=== PATIENT | female | born 1955 | race Caucasian/White ===

== ENCOUNTER 2017-04-07 09:56 | Emergency (ER) | payer MEDICARE ==
[2017-04-07 11:14] LABS: ABS Basophils 0.1 10^3/ul (0-0.2); ABS Eosinophils 0.3 10^3/ul (0-0.6); ABS Lymphocytes 1.3 10^3/ul (1.0-4.8); ABS Monocytes 0.5 10^3/ul (0-0.8); ABS Neutrophils 5.5 10^3/ul (1.5-7.7); ABS Nucleated RBC 0 10^3/ul; Eosinophil % 3.5 % (0-6); Hematocrit 43 % (35-47); Hemoglobin 14.7 g/dl (12.0-16.0); Lymphocyte % 16.8 % (25-47); Mean Corpuscular HGB Conc 34 g/dl (31-36); Mean Corpuscular Hemoglobin 30 pg (27-31); Mean Corpuscular Volume 88 fL (80-97); Mean Platelet Volume 7 um3 (7.4-10.4); Nucleated Red Blood Cells % 0; Platelet Count 410 10^3/ul (150-450); Red Blood Count 4.87 10^6/ul (4.0-5.4); Red Cell Distribution Width 14 % (10.5-15); White Blood Count 7.6 10^3/ul (3.5-10.8)
[2017-04-07 11:29] LABS: EGFR Non-African American 63.2 (>60)
--- NOTE | 2017-04-07 11:59 | RAD ---
INDICATION: Chest pain. COMPARISON: Comparison is made with a prior chest x-ray study from November 23, 2015. TECHNIQUE: Dual-energy PA and lateral views of the chest were obtained. FINDINGS: The heart is within normal limits in size. There is a transvenous cardiac pacemaker present. The lungs are underinflated and clear. No pleural effusion is seen. No pneumothorax is present. Multiple surgical clips project in the right and left upper quadrants. IMPRESSION: NO EVIDENCE FOR ACTIVE CARDIOPULMONARY DISEASE.
[2017-04-07] MEDS ORDERED: Iohexol 350* (CONTRAST) 500 ML MDV IV ONE (13:02)
--- NOTE | 2017-04-07 13:35 | RAD ---
HISTORY: Shortness of breath COMPARISONS: July 22, 2014 TECHNIQUE: Multiple contiguous axial CT scans of the chest were obtained after the administration of nonionic intravenous contrast, timed to the pulmonary arterial phase of contrast enhancement.. Coronal and sagittal multiplanar reformations are also submitted for review. FINDINGS: NECK AND THYROID: The lower neck and thyroid are unremarkable. CHEST WALL: There is no lower cervical, axillary, or supraclavicular lymphadenopathy by size criteria. A left-sided ICD is noted. HEART AND PERICARDIUM: The heart is unremarkable. AORTA AND PULMONARY VASCULATURE: There is no pulmonary arterial filling defect to suggest pulmonary embolism. There is no linear filling defect within the aorta to suggest aortic dissection. MEDIASTINUM: There is no mediastinal lymphadenopathy by size criteria. NASREEN: There is no hilar lymphadenopathy by size criteria. AIRWAY AND ESOPHAGUS: The airway is unremarkable, without endobronchial filling defect. The esophagus is grossly normal. LUNG PARENCHYMA: The lungs are clear. PLEURA: No pleural abnormalities are noted. UPPER ABDOMEN: There is postsurgical change to the upper abdomen. BONES AND SOFT TISSUES: No bone or soft tissue abnormalities are noted. OTHER: None. IMPRESSION: NO PULMONARY ARTERIAL FILLING DEFECT TO SUGGEST PULMONARY EMBOLISM.
[2017-04-07 15:38] VITALS: BP 99/62
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
== END 2017-04-07 15:37 | disposition home or self-care (01) ==
LOC: ED 09:56
DX: R07.9 Chest pain, unspecified (principal); J40 Bronchitis, not specified as acute or chronic; I25.10 Atherosclerotic heart disease of native coronary artery without angina pectoris; Z87.09 Personal history of other diseases of the respiratory system; Z88.0 Allergy status to penicillin; Z88.8 Allergy status to other drugs, medicaments and biological substances
CPT/HCPCS: 36415; 71046; 71275; 80053; 83605; 84484; 85025; 85379; 93005; 99283; Q9967

== ENCOUNTER 2018-06-22 07:18 | Day surgery (SDC) | payer MEDICARE ==
[~2018-06-22 07:18] MED LIST: Buffered Lidocaine 1% SYRIN* 1 ML/SYRINGE INTRADERM ONE; Dexamethasone IV* 4 MG/ML 1 ML (4 MG) IV SLOW PU ONE; Famotidine IV* 10 MG/ML 2 ML (20 mg) IV ONE; Lactated Ringers 1000 ML Bag* 1,000 ML IV SCH
[2018-06-22] MEDS ORDERED: Dexamethasone IV* 4 MG/ML 1 ML (4 MG) ONE (08:04)
[2018-06-22] MEDS ORDERED: Buffered Lidocaine 1% SYRIN* 1 ML/SYRINGE INTRADERM ONE (08:05)
[2018-06-22] MEDS ORDERED: Famotidine IV* 10 MG/ML 2 ML (20 mg) ONE (08:05)
[2018-06-22] MEDS ORDERED: Bupivacaine 0.25% SDV PF* 10 ML VIAL INJ ONE ×2 (08:49→09:06)
[2018-06-22] MEDS ORDERED: Midazolam* 1 MG/ML 2 ML VIAL (2 MG) ONE (08:56)
[2018-06-22] MEDS ORDERED: fentaNYL* 50 MCG/ML 2 ML VIAL (100 MCG VIAL) ONE (08:56)
[2018-06-22] MEDS ORDERED: Propofol* 10 MG/ML 20 ML BTL ONE (09:03)
[2018-06-22] MEDS ORDERED: Lidocaine 2% PF * 5 ML VIAL ONE (09:03)
[2018-06-22 10:01] VITALS: BP 107/75
--- NOTE | 2018-06-22 10:40 | OP ---
DATE OF OPERATION: 06/22/18 - SDS DATE OF : 53 SURGEON: Luis Rush MD. PLASTER HELPER: KIM Thurston. ANESTHESIOLOGIST: Dr. Rosales. ANESTHESIA: Local MAC. PRE-OP DIAGNOSIS: Severe right trigger thumb. POST-OP DIAGNOSIS: Severe right trigger thumb. OPERATIVE PROCEDURE: Right trigger thumb release of A1 tamela. INDICATIONS: Stacie is 63. She has the right trigger thumb that is locked in extension. We had talked about risks and benefits. She had wanted a trigger thumb release. ESTIMATED BLOOD LOSS: 2 mL. COMPLICATIONS: None. FINDINGS: See above and below. DESCRIPTION OF PROCEDURE: Stacie was seen in the preoperative holding area. The correct side, site, and procedure were identified. She was taken back to the operating room where I injected her with 0.25% Marcaine. The arm was then prepped and draped in the usual fashion and time-out was performed. The arm was exsanguinated with the Esmarch and the tourniquet was inflated to 250 mmHg. I made a transverse incision in the MP joint flexion crease. Dissection was carried down bluntly with the tenotomy scissors. The digital nerves were retracted and protected. I then released a very thickened nodular A1 tamela. This was completed distally and proximally with the tenotomy scissors. I then checked to make sure there was no catching of the thumb. I excised just the most nodular portion of that tamela. Once all that was done, I irrigated out the wound. Skin was closed with 4-0 nylon suture. Soft dressings were applied, and she was taken to the recovery room in stable condition. [id number]/[facility] #: [id number] MTDD
== END 2018-06-22 10:37 | disposition home or self-care (01) ==
LOC: OR 07:18
PROVIDERS: ATTEND Orthopaedic Surgery Hand Surgery
DX: M65.311 Trigger thumb, right thumb (principal); I25.10 Atherosclerotic heart disease of native coronary artery without angina pectoris; I25.2 Old myocardial infarction; Z95.5 Presence of coronary angioplasty implant and graft; I36.1 Nonrheumatic tricuspid (valve) insufficiency; Z88.0 Allergy status to penicillin; Z88.8 Allergy status to other drugs, medicaments and biological substances
CPT/HCPCS: J1100; J2250; J2704; J3010; J3490

== ENCOUNTER 2019-01-27 18:11 | Observation (INO) | payer MEDICARE ==
[2019-01-27 18:37] LABS: ABS Basophils 0.1 10^3/ul (0-0.2); ABS Eosinophils 0.4 10^3/ul (0-0.6); ABS Lymphocytes 1.6 10^3/ul (1.0-4.8); ABS Monocytes 0.7 10^3/ul (0-0.8); Eosinophil % 5.2 %; Hematocrit 39 % (35-47); Lymphocyte % 20.5 %; Mean Corpuscular HGB Conc 34 g/dL (31-36); Mean Corpuscular Hemoglobin 31 pg (27-31); Mean Corpuscular Volume 90 fL (80-97); Mean Platelet Volume 7.1 fL (7.4-10.4); Platelet Count 275 10^3/uL (150-450); Red Blood Count 4.26 10^6 /uL (3.70-4.87); Red Cell Distribution Width 14 % (10-15); White Blood Count 7.8 10^3/uL (3.5-10.8)
--- OUTSIDE RECORDS SUMMARY | 2019-01-27 18:40 | XMS REPORT | Continuity of Care Document ---
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, primary osteoarthritis of the pelvic Kelsey Ade Walker Onset: 05/2018 region and thigh Social History Type Date Description Comments Sex Unknown Tobacco Use Start: Unknown Never Smoked Cigarettes Smoking Status Reviewed: 12/24/18 Never Smoked Cigarettes ETOH Use Denies alcohol use Tobacco Use Start: Unknown Patient has never smoked Recreational Drug Use Denies Drug Use Exercise Type/Frequency Walks daily Allergies, Adverse Reactions, Alerts Active Allergies Reaction Severity Comments Date Penicillins 06/16/2012 Demerol 06/16/2012 Lisinopril Cough 01/24/2015 Medications Active Medications SIG Qnty Indications Ordering Provider Date Digox 12 tab by 45tabs Qutaybeh S. 04/14/2017 250mcg Tablets mouth every day Ade Call Crestor 1 by mouth 90tabs Qutaybeh S. 01/06/2017 40mg Tablets every day Ade Call Metoprolol Succinate 1/2 by mouth 45tabs Qutaybeh S. 06/21/2015 ER every day Ade Call 25mg Tablets ER 24HR Aspir-81 1 a day 90tabs Tom Myers, 07/25/2014 81mg Tablets Ade Reyna 1 tab by mouth 180tabs Cris S. 90mg Tablets twice a day Ade Call Co Q-10 1 by mouth Unknown 200mg Capsules every day Vitamin D 1 by mouth Unknown 2000Unit every day Capsules Medications Administered in Office Medication SIG Qnty Indications Ordering Provider Date Celestone 3 mg and 3mg Luis Rush MD 12/01/2018 Injection Depomedrol 40MG Kelsey Walker M.D. 08/31/2018 Injection Technetium TC 99M Asaf Diallo DO [facility] 06/19/2017 Tetrofosmin, Per Unit Dose Up To 40 Millicuries Injection Celestone 3 mg and 3mg Daxa Obando, 07/27/2012 Injection Ade Celestone 3 mg and 3mg Daxa Obando, 07/27/2012 Injection Ade Celestone 3 mg and 3mg Luis Rose M.D. 11/27/2011 Injection Immunizations CPT Code Status Date Vaccine Lot # [id number] Given 01/05/2015 Pneumonia Vaccine 08154 Given 01/05/2015 Influenza Virus Vaccine, Split, Preserv Free, Intradermal Use Vital Signs Date Vital Result Comment 12/24/2018 2:14pm Height 64.75 inches 5'4.75" Weight 168.00 lb Heart Rate 78 /min BP Systolic Sitting 119 mmHg BP Diastolic Sitting 83 mmHg O2 % BldC Oximetry 99 % room air BMI (Body Mass Index) 28.2 kg/m2 12/01/2018 8:04am Height 64.75 inches 5'4.75" Weight 165.00 lb Heart Rate 73 /min BP Systolic 118 mmHg BP Diastolic 78 mmHg Respiratory Rate 16 /min Body Temperature 98.0 F Pain Level 2 BMI (Body Mass Index) 27.7 kg/m2 Results Test Date Facility Test Result H/L Range Note Laboratory test 12/23/2018 [facility] Point of Care 100 mg/dL Normal 70-100 [address] [place] [address] [phone] Creatinine 24HR 12/21/2018 [facility] Urine Collection 24 hr Urine [address] [place] [address] [phone] Urine Total Volume 3800 mL Urine Creatinine Concentration 25.85 mg/dL Urine Creatinine/24 Hour 982.30 mg/24Hr 600-1800 Total Protein 12/21/2018 [facility] Urine TP Concentration 6 mg/ dL 24HR Urine [address] [place] [address] [phone] Urine Total Protein/24HR 228 mg/24Hr High 0-165 Microalbumin 24HR 12/21/2018 [facility] Ur Microalbumin < 15.[address] (mg/L) mg/[place] [address] [phone] Urine Microalbumin (mg/24Hr) TNP mg/24hr Less than 30 2 Urine Microalbumin (mcg/min) TNP mcg/min Less than 20 3 Urinalysis Profile 12/21/2018 [facility] Urine Color Yellow [address] [place] [address] [phone] Urine Appearance Cloudy Urine Specific [place] 1.019 Normal 1.010-1.030 Urine pH 5.0 Normal 5-9 Urine Urobilinogen Negative Negative Urine Ketones Negative Negative Urine Protein 1+(30 mg/dL) Abnormal Negative Urine Leukocytes Negative Negative Urine Blood Negative Negative Urine Nitrite Negative Negative Urine Bilirubin Negative Negative Urine Glucose Negative Negative Urine White Blood Cell Absent Absent Urine Red Blood Cell Absent Absent Urine Bacteria Absent Absent Urine Squamous Epithelial Cell Present Abnormal Absent Comp Metabolic 12/21/2018 [facility] Sodium 142 mmol/L Normal 135-[address] [place] [address] [phone] Potassium 4.1 mmol/L Normal 3.5-5.0 Chloride 104 mmol/L Normal 101-111 Co2 Carbon Dioxide 32 mmol/L Normal 22-32 Anion Gap 6 mmol/L Normal 2-11 Calcium 9.6 mg/dL Normal 8.6-10.3 Albumin 3.9 g/dL Normal 3.2-5.2 Total Bilirubin 0.40 mg/dL Normal 0.2-1.0 Glucose 97 mg/dL Normal 70-100 Blood Urea Nitrogen 13 mg/dL Normal 6-24 Creatinine 0.92 mg/dL Normal 0.51-0.95 BUN/Creatinine Ratio 14.1 Normal 8-20 Total Protein 6.8 g/dL Normal 6.4-8.9 Globulin 2.9 g/dL Normal 2-4 Albumin/Globulin Ratio 1.3 Normal 1-3 Alkaline Phosphatase 89 U/L Normal 34-104 Alt 17 U/L Normal 7-52 Ast 16 U/L Normal 13-39 Egfr Non- 61.5 >60 Egfr 74.4 >60 4 CBC Auto 12/21/2018 [facility] White Blood 6.2 10^3/uL Normal 3.5-10.[address] [place] [address] [phone] Red Blood Count 4.84 10^6/uL Normal 3.70-4.87 Hemoglobin 15.0 g/dL Normal 12.0-16.0 Hematocrit 44 % Normal 35-47 Mean Corpuscular Volume 91 fL Normal 80-97 Mean Corpuscular Hemoglobin 31 pg Normal 27-31 Mean Corpuscular HGB Conc 34 g/dL Normal 31-36 Red Cell Distribution Width 14 % Normal 10-15 Platelet Count 353 10^3/uL Normal 150-450 Mean Platelet Volume 7.3 fL Low 7.4-10.4 Abs Neutrophils 3.9 10^3/uL Normal 1.5-7.7 Abs Lymphocytes 1.6 10^3/uL Normal 1.0-4.8 Abs Monocytes 0.4 10^3/uL Normal 0-0.8 Abs Eosinophils 0.3 10^3/uL Normal 0-0.6 Abs Basophils 0.0 10^3/uL Normal 0-0.2 Abs Nucleated RBC 0.0 10^3/uL Granulocyte % 63.2 % Lymphocyte % 25.3 % Monocyte % 6.7 % Eosinophil % 4.1 % Basophil % 0.7 % Nucleated Red Blood Cells % 0.1 Laboratory test 12/04/2018 [facility] Beta 2 2.24 [address] Microglobulin g/[place] [address] [phone] Igg Subclasses 12/04/2018 [facility] Total IgG 1510 mg/dL 767 - [address] [place] [address] [phone] Immunoglobulin G1 954 mg/dL Abnormal 341 - 894 Immunoglobulin G2 325 mg/dL 171 - 632 Immunoglobulin G3 94.3 mg/dL 6 Immunoglobulin G4 273.0 mg/dL Abnormal 7 Microalbumin 24HR 11/12/2018 [facility] Ur Microalbumin 43.6 mg/ L Urine [address] (mg/L) [place], [place] [id number] [phone] Urine Microalbumin (mg/24Hr) 204.9 mg/24hr High Less than 30 Urine Microalbumin (mcg/min) 142.3 mcg/min High Less than 20 Creatinine 24HR 11/12/2018 [facility] Urine Collection 24 hr Urine [address] Time [place], [place] [address] [phone] Urine Total Volume 4700 mL Urine Creatinine Concentration 32.84 mg/dL Urine Creatinine/24 Hour 1543.48 mg/24Hr 600-1800 Total Protein 11/12/2018 [facility] Urine TP 34 mg/dL 24HR Urine [address] [place] [address] [phone] Urine Total Protein/24HR 1598 mg/24Hr High 0-165 Immunoglobulins 11/12/2018 [facility] Immunoglobulin G 1450 767 - 8 Serum Quant [address] mg/dL 1590 [place] [address] [phone] Immunoglobulin M 25 mg/dL Abnormal 37 - 286 Immunoglobulin A 309 mg/dL 61 - 356 Urine Culture And 10/13/2018 [facility] Urine SEE RESULT [address] [place] [address] [phone] CBC Auto Diff 10/13/2018 [facility] White Blood 6.3 10^3/uL Normal 3.5-[address] Count 0.8 [place], [place] [address] [phone] Red Blood Count 4.94 10^6/uL High 3.70-4.87 Hemoglobin 15.4 g/dL Normal 12.0-16.0 Hematocrit 45 % Normal 35-47 Mean Corpuscular Volume 91 fL Normal 80-97 Mean Corpuscular Hemoglobin 31 pg Normal 27-31 Mean Corpuscular HGB Conc 34 g/dL Normal 31-36 Red Cell Distribution Width 15 % Normal 10-15 Platelet Count 331 10^3/uL Normal 150-450 Mean Platelet Volume 7.2 fL Low 7.4-10.4 Abs Neutrophils 4.1 10^3/uL Normal 1.5-7.7 Abs Lymphocytes 1.4 10^3/uL Normal 1.0-4.8 Abs Monocytes 0.5 10^3/uL Normal 0-0.8 Abs Eosinophils 0.3 10^3/uL Normal 0-0.6 Abs Basophils 0.1 10^3/uL Normal 0-0.2 Abs Nucleated RBC 0.0 10^3/uL Granulocyte % 64.5 % Lymphocyte % 21.6 % Monocyte % 8.5 % Eosinophil % 4.5 % Basophil % 0.9 % Nucleated Red Blood Cells % 0.1 Comp Metabolic 10/13/2018 [facility] Sodium 141 mmol/L Normal 135-145 Panel [address] [place] [address] [phone] Potassium 4.1 mmol/L Normal 3.5-5.0 Chloride 104 mmol/L Normal 101-111 Co2 Carbon Dioxide 31 mmol/L Normal 22-32 Anion Gap 6 mmol/L Normal 2-11 Glucose 83 mg/dL Normal 70-100 Blood Urea Nitrogen 12 mg/dL Normal 6-24 Creatinine 0.98 mg/dL High 0.51-0.95 BUN/Creatinine Ratio 12.2 Normal 8-20 Calcium 9.9 mg/dL Normal 8.6-10.3 Total Protein 7.6 g/dL Normal 6.4-8.9 Albumin 4.4 g/dL Normal 3.2-5.2 Globulin 3.2 g/dL Normal 2-4 Albumin/Globulin Ratio 1.4 Normal 1-3 Total Bilirubin 0.60 mg/dL Normal 0.2-1.0 Alkaline Phosphatase 96 U/L Normal 34-104 Alt 25 U/L Normal 7-52 Ast 22 U/L Normal 13-39 Egfr Non- 57.1 >60 Egfr 69.1 >60 10 Scleroderma AB 10/13/2018 [facility] Scleroderma Ab <0.2 U 11 (SCL70) [address] [place] [address] [phone] Hepatitis C Antibody 10/13/2018 [facility] HCV Index 0.03 s/c [facility] [place][note 2] [place] [address] [phone] Hepatitis C Antibody Negative Negative Laboratory test 10/13/2018 [facility] Immunoglobulin A 309 mg/ dL 61 - 12 finding 101 [facility] ([place]) [address] [place] [address] [phone] Hepatitis B Surface Ag Negative Negative Urinalysis Profile 10/13/2018 [facility] Urine Color Yellow [address] [place] [address] [phone] Urine Appearance Cloudy Urine Specific [place] 1.012 Normal 1.010-1.030 Urine pH 6.0 Normal 5-9 Urine Urobilinogen Negative Negative Urine Ketones Negative Negative Urine Protein 2+(100 mg/dL) Abnormal Negative Urine Leukocytes Negative Negative Urine Blood 1+ Abnormal Negative Urine Nitrite Negative Negative Urine Bilirubin Negative Negative Urine Glucose Negative Negative Urine White Blood Cell Trace(0-5/hpf) Absent Urine Red Blood Cell Trace(0-2/hpf) Absent Urine Bacteria Absent Absent Urine Squamous Epithelial Cell Present Abnormal Absent Chamber[place]/Lambda Free 10/13/2018 [facility] [place] Free 4.82 mg/dL Abnormal 13 Light Chains Ser [facility] [place][note 2] [employer] [place] [address] [phone] Lambda Free Light Chain 2.10 mg/dL 14 [place]/Lambda Free Light Chain 2.30 Abnormal 15 Protein 10/13/2018 [facility] Immunofixation See Comment 16 Electrophoresis [facility] [place][note 2] [place] [address] [phone] Total Protein(Pep) 7.5 g/dL 6.3 - 7.9 Albumin 3.3 g/dL Abnormal 3.4-4.7 Alpha-1 Globulin 0.3 g/dL 0.1-0.3 Alpha-2 Globulin 1.2 g/dL Abnormal 0.6-1.0 Beta Globulin 1.1 g/dL 0.7-1.2 Gamma Globulin 1.7 g/dL Abnormal 0.6-1.6 Albumin/Globulin Ratio 0.80 M Mitchel 0.6 g/dL Impression See Comment 17 Urine Protein Elctrophoresis 10/13/2018 [facility] Albumin 26 % 18 (RDM) [facility] [place][note 2] [place] [address] [phone] Alpha-1 Globulin 8 % 19 Alpha-2 Globulin 30 % 20 Beta Globulin 20 % 21 Gamma Globulin 16 % 22 Albumin/Globulin Ratio 0.34 % Impression See Comment 23 Total Protein(Pep) Urine 15 mg/dL 24 Immunofixation Urine See Comment 25 Laboratory test 10/13/2018 [facility] Glomerular Basement <0.2 U 26 finding [address] [place] [address] [phone] Anca Panel For 10/13/2018 [facility] Myeloperoxidase AB < 0.2 U [address] [place] [address] [phone] Proteinase 3 AB < 0.2 U 28 Laboratory test 10/13/2018 [facility] Urine Creatinine 21.30 mg/ dL finding [address] [place] [address] [phone] Urine TP Concentration 29 mg/dL Eosinophil Smear NONE SEEN Urine Microalbumin 10/13/2018 [facility] Ur Microalbumin 323.0 mg/L Random [address] (mg/L) [place] [address] [phone] Urine Creatinine 84.71 mg/dL Urine Microalbumin/Creatinine 381.3 High <31 Creatinine 24HR 10/13/2018 [facility] Urine Collection 24 hr Urine [address] [place] [address] [phone] Urine Total Volume 4900 mL Urine Creatinine/24 Hour 1043.70 mg/24Hr Normal 600-1800 Total 10/13/2018 [facility] Urine Total 1421 mg/24Hr High 0- 165 Protein 24HR [address] Protein/24[place] [address] [phone] Gricelda Igg AB 10/13/2018 [facility] SS-A/Ro Antibody <0.2 U [address] [place] [address] [phone] SS-B/La Antibody <0.2 U 30 Sm (Conrad) IgG Antibody <0.2 U 31 FITNESS ASSISTANT Antibody, IgG 0.3 U 32 Scl-70 (Scleroderma) Antibody <0.2 U 33 Nidhi-1 Antibody <0.2 U 34 Xray 08/31/2018 [facility] Inj/Aspir Major JT <pending> Or Bursa W/ US Creatinine 24HR 08/06/2018 [facility] Urine Collection 24 hr Urine [address] [place] [address] [phone] Urine Total Volume 3750 mL Urine Creatinine/24 Hour 1168.50 mg/24Hr Normal 600-1800 Laboratory test 08/06/2018 [facility] Urine TP 21 mg/dL finding [address] [place] [address] [phone] Laboratory test 08/06/2018 [facility] Urine Creatinine 31.[address] Concentration mg/dL [place], [place] [address] [phone] Total Protein 08/06/2018 [facility] Urine Total 787 High 0-16 24HR Urine 101 Protein/24HR mg/24Hr 5 [place] [address] [phone] Laboratory test 08/06/2018 [facility] Anti Nuclear 1.0 U 35 [place] [address] [phone] Hemoglobin A1c (Glyco HGB) 5.9 % High 4.0-5.6 36 Creatinine Clearance 08/06/2018 [facility] Urine Collection 24 hr [address] [place] [address] [phone] Urine Total Volume 3750 mL Creatinine, Serum 0.96 mg/dL High 0.51-0.95 Creatinine Clearance 85 mL/min Low 88-128 Iron & Iron Binding 08/06/2018 [facility] Iron 91 g/dL Normal 50-212 Capacity [address] [place] [address] [phone] Unsaturated Iron Binding < 280 g/dL Total Iron Binding Capacity 295 g/dL Normal 250-450 % Iron Saturation 31 % Normal 15-55 Laboratory test 08/06/2018 [facility] Ferritin 59.4 ng/mL Normal 11-307 finding [address] [place] [address] [phone] Transferrin 211 mg/dL Normal 203-362 Comp Metabolic 08/06/2018 [facility] Sodium 141 mmol/L Normal 135-145 Panel [address] [place] [address] [phone] Potassium 4.2 mmol/L Normal 3.5-5.0 Chloride 106 mmol/L Normal 101-111 Co2 Carbon Dioxide 29 mmol/L Normal 22-32 Anion Gap 6 mmol/L Normal 2-11 Glucose 96 mg/dL Normal 70-100 Blood Urea Nitrogen 17 mg/dL Normal 6-24 Creatinine 0.96 mg/dL High 0.51-0.95 BUN/Creatinine Ratio 17.7 Normal 8-20 Calcium 10.0 mg/dL Normal 8.6-10.3 Total Protein 7.2 g/dL Normal 6.4-8.9 Albumin 4.2 g/dL Normal 3.2-5.2 Globulin 3.0 g/dL Normal 2-4 Albumin/Globulin Ratio 1.4 Normal 1-3 Total Bilirubin 0.70 mg/dL Normal 0.2-1.0 Alkaline Phosphatase 88 U/L Normal 34-104 Alt 22 U/L Normal 7-52 Ast 20 U/L Normal 13-39 Egfr Non- 58.5 >60 Egfr 70.8 >60 37 Laboratory test 08/06/2018 [facility] Cortisol 10.35 g/dL [address] [place] [address] [phone] Urine Culture And 08/06/2018 [facility] Urine Culture SEE RESULT [address] [place] [address] [phone] Urinalysis Profile 08/06/2018 [facility] Urine Color Yellow [address] [place] [address] [phone] Urine Appearance Cloudy Urine Specific [place] 1.020 Normal 1.010-1.030 Urine pH 5.0 Normal 5-9 Urine Urobilinogen Negative Negative Urine Ketones Negative Negative Urine Protein 2+(100 mg/dL) Abnormal Negative Urine Leukocytes 3+ Abnormal Negative Urine Blood 1+ Abnormal Negative Urine Nitrite Negative Negative Urine Bilirubin Negative Negative Urine Glucose Negative Negative Urine White Blood Cell 1+(6-10/hpf) Abnormal Absent Urine Red Blood Cell 1+(3-5/hpf) Abnormal Absent Urine Bacteria 1+ Abnormal Absent Urine Squamous Epithelial Cell Present Abnormal Absent Urine Hyaline Casts Present Abnormal Absent 1 Supervisor [employer]: [id number] 2 Unable to calculate due to low microalbumin 3 Unable to calculate due to low microalbumin 4 Because ethnic data is not always readily available, this report includes an eGFR for both -Americans and non- Americans. The National Kidney Disease Education Program (NKDEP) does not endorse the use of the MDRD equation for patients that are not between the ages of 18 and 70, are , have extremes of body size, muscle mass, or nutritional status, or are non- or non-. According to the National Kidney Foundation, irrespective of diagnosis, the stage of the disease is based on the level of kidney function: Stage Description GFR(mL/min/1.73 m(2)) 1 Kidney damage with normal or decreased GFR 90 2 Kidney damage with mild decrease in GFR 60-89 3 Moderate decrease in GFR 30-59 4 Severe decrease in GFR 15-29 5 Kidney failure <15 (or dialysis) 5 REFERENCE VALUE 1.21 - 2.70 Test Performed by: [facility] [place] [address] Solution Professional: Stewart Monson M.D. Ph.D.; CLIA# [id number] 6 REFERENCE VALUE 18.4 - 106.0 7 REFERENCE VALUE 2.4 - 121.0 Test Performed by: [facility] [place] [address] Solution Professional: Stewart Monson M.D. Ph.D.; CLIA# [id number] 8 Test Performed by: [facility] [place] [address] 9 SEE RESULT BELOW Name: STACIE BREAUX : [address]: Shana Borrero MD Acct: [id number] Unit: [id number] AGE: 63 Location: LAB Re10/13/18 SEX: F Status: REG REF SPEC: [id number] ASHWINI: 10/13/18 [facility] DR: Shana Borrero MD REQ: [id number] RECD: 10/13/18 STATUS: COMP [facility] DR: Napoleon Arriaga MD _ SOURCE: URINE SPDESC: ORDERED: Urine Culture Procedure Result Reported Site Urine Culture Final 10/14/18- 1602 ML No Growth (<1,000 CFU/mL) * ML - Main Lab . END OF REPORT DEPARTMENT OF PATHOLOGY, [address] [place] [address] Saul Kaba M.D. Director [facility] # [id number] 10 Because ethnic data is not always readily available, this report includes an eGFR for both -Americans and non- Americans. The National Kidney Disease Education Program (NKDEP) does not endorse the use of the MDRD equation for patients that are not between the ages of 18 and 70, are , have extremes of body size, muscle mass, or nutritional status, or are non- or non-. According to the National Kidney Foundation, irrespective of diagnosis, the stage of the disease is based on the level of kidney function: Stage Description GFR(mL/min/1.73 m(2)) 1 Kidney damage with normal or decreased GFR 90 2 Kidney damage with mild decrease in GFR 60-89 3 Moderate decrease in GFR 30-59 4 Severe decrease in GFR 15-29 5 Kidney failure <15 (or dialysis) 11 REFERENCE VALUE <1.0 (Negative) Test Performed by: [email or web address] [facility] [employer] [facility] [place] [address] 12 Test Performed by: [facility] [place] [address] 13 REFERENCE VALUE 0.3300-1.94 14 REFERENCE VALUE 0.5700-2.63 15 Elevated free light chain ratios between 1.66 and 3.00 may occur due to polyclonal hypergammaglobulinemia or impaired renal clearance. An isolated increased free light chain ratio in this range should be interpreted with caution, and clinical correlation is recommended. REFERENCE VALUE 0.2600-1.65 Test Performed by: [facility] [place] [address] 16 Monoclonal IgG kappa. C/W MGUS, myeloma, amyloidosis, etc. Suggest 24-hr urine Monoclonal Protein Studies. Test Performed by: [place] [address] 17 M-spike in gamma fraction. See Immunofixation. Test Performed by: [place] [address] 18 4 mg/dL 19 1 mg/dL 20 5 mg/dL 21 3 mg/dL 22 2 mg/dL 23 Small abnormality in gamma fraction. See Immunofixation. 24 ADDITIONAL INFORMATION On 09/24/2016 the total protein assay method changed resulting in approximately a 15% increase in protein values. Test Performed by: [place] [address] Test Performed by: [facility] - [address] [address] 25 Small monoclonal kappa plus IgG kappa fragment in gamma fraction. Test Performed by: [address] [address] 26 REFERENCE VALUE <1.0 (Negative) Test Performed by: [address] [address] 27 REFERENCE VALUE <0.4 (Negative) 28 REFERENCE VALUE <0.4 (Negative) Test Performed by: [facility] - [address] [address] 29 REFERENCE VALUE <1.0 (Negative) 30 REFERENCE VALUE <1.0 (Negative) 31 REFERENCE VALUE <1.0 (Negative) 32 REFERENCE VALUE <1.0 (Negative) 33 REFERENCE VALUE <1.0 (Negative) 34 REFERENCE VALUE <1.0 (Negative) Test Performed by: [facility] [employer] [address] [place] [address] 35 REFERENCE VALUE <=1.0 (Negative) Test Performed by: [facility] [employer] [address] [place] [address] 36 Therapeutic target for the treatment of diabetes mellitus patients is <7% HBA1C, and in selective patients <6.0%. Please refer to [employer] diabetic care guidelines for further information. 37 Because ethnic data is not always readily available, this report includes an eGFR for both -Americans and non- Americans. The National Kidney Disease Education Program (NKDEP) does not endorse the use of the MDRD equation for patients that are not between the ages of 18 and 70, are , have extremes of body size, muscle mass, or nutritional status, or are non- or non-. According to the National Kidney Foundation, irrespective of diagnosis, the stage of the disease is based on the level of kidney function: Stage Description GFR(mL/min/1.73 m(2)) 1 Kidney damage with normal or decreased GFR 90 2 Kidney damage with mild decrease in GFR 60-89 3 Moderate decrease in GFR 30-59 4 Severe decrease in GFR 15-29 5 Kidney failure <15 (or dialysis) 38 AM 8.7-22.4 PM <10 39 SEE RESULT BELOW Name: STACIE BREAUX : [address]: Shana Borrero MD Acct: [id number] Unit: [id number] AGE: 63 Location: [facility] Re08/06/18 SEX: F Status: REG REF SPEC: [id number] ASHWINI: 08/06/[address]: Shana Borrero MD REQ: [id number] RECD: 08/06/18 STATUS: VERONICA CULVER DR: Cris Call MD _ SOURCE: URINE SPDESC: ORDERED: Urine Culture Procedure Result Reported Site Urine Culture Final 08/07/18- 1310 ML No growth of clinically significant organisms * ML - Main Lab . END OF REPORT DEPARTMENT OF PATHOLOGY, [address] [place] [address] Saul Kaba M.D. Director [facility] # [id number] Procedures Date Code Description Status 12/24/2018 95264 Icd Eval Sing,Dual,Multi Lead Remote Recpt Transm Tech Completed Rev Tech S 12/24/2018 20536 Icd Check Remote Up To 90 Days Single,Dual,Multiple Completed Lead 12/01/201835696 Inject Tendon Sheath Or Ligament Aponeurosis Eg Plantar Completed Fascia 09/16/2018 16342 Echocardiogram, Limited Study Completed 09/16/2018 79872 Echocardiogram, Limited Study Completed 09/07/2018 02895 Icd eval w/iterative adjment single lead Icd Completed 09/07/2018 47080 Icd eval w/iterative adjment single lead Icd Completed 08/31/2018 Inj/Aspir Major JT Or Bursa W/ US Completed 07/21/2018 [id number] Mammogram Completed Medical Devices Description No Information Available Encounters Type Date Location Provider Dx Diagnosis Office Visit 12/01/2018 [facility] Luis Rush, M65.332 Trigger finger, 8:00a at Cord left middle finger Office Visit 11/23/2018 [facility] Nephrology Shana 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 hip M16.12 Unilateral primary osteoarthritis, left hip Office Visit 08/28/2018 11:00a [facility] Nephrology Shana R80.9 Proteinuria, MD Gissell unspecified N18.9 Chronic kidney disease, unspecified Assessments Date Code Description Provider 12/24/2018 R80.9 Proteinuria, unspecified Shana Borrero MD 12/24/2018 Z95.810 Presence of automatic (implantable) Remote Device Checks cardiac defibrillator 12/24/2018 N18.9 Chronic kidney disease, unspecified Shana Borrero MD 12/24/2018 I25.5 Ischemic cardiomyopathy Remote Device Checks 12/24/2018 I10 Essential (primary) hypertension Shana Borrero MD 12/01/2018 M65.332 Trigger finger, left middle finger Luis Rush MD 11/23/2018 D47.2 Monoclonal gammopathy Shana Borrero MD 11/23/2018 N18.9 Chronic kidney disease, unspecified Shana Borrero MD 10/28/2018 D47.2 Monoclonal gammopathy Shana Borrero MD 09/16/2018 I25.5 Ischemic cardiomyopathy Cris Call M.D. 09/16/2018 I25.5 Ischemic cardiomyopathy [place] [facility] Schedule 09/16/2018 Z95.810 Presence of automatic (implantable) [place] [facility] Schedule cardiac defibrillator 09/16/2018 R94.31 Abnormal electrocardiogram [ECG] [EKG] [place] [facility] Schedule 09/16/2018 Z98.61 Coronary angioplasty status [place] [facility] Schedule 09/14/2018 M16.12 Unilateral primary osteoarthritis, Kelsey Walker M.D. left hip 09/14/2018 M25.552 Pain in left hip Kelsey Walker M.D. 09/07/2018 I25.5 Ischemic cardiomyopathy [place] [facility] Schedule 09/07/2018 Z95.810 Presence of automatic (implantable) Cris Call M.D. cardiac defibrillator 09/07/2018 Z95.810 Presence of automatic (implantable) [place] [facility] Schedule cardiac defibrillator 09/03/2018 N18.9 Chronic kidney disease, unspecified Cris Call M.D. 09/03/2018 I25.5 Ischemic cardiomyopathy Cris Call M.D. 09/03/2018 R94.31 Abnormal electrocardiogram [ECG] [EKG] Cris Call M.D. 09/03/2018 Z95.810 Presence of automatic (implantable) Cris Call M.D. cardiac defibrillator 09/03/2018 E78.5 Hyperlipidemia, unspecified Cris Call M.D. 09/03/2018 Z98.61 Coronary angioplasty status Cris Call M.D. 09/03/2018 Z01.810 Encounter for preprocedural Qusilvano Call M.D. 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 left hip 08/31/2018 M25.552 Pain in left hip Kelsey Walker M.D. 08/31/2018 M16.12 Unilateral primary osteoarthritis, Kelsey Walker M.D. left hip 08/28/2018 R80.9 Proteinuria, unspecified Shana Borrero MD 08/28/2018 N18.9 Chronic kidney disease, unspecified Shana Borrero MD 08/04/2018 M65.311 Trigger thumb, right thumb Luis Rush MD 08/04/2018 Z47.89 Encounter for other orthopedic Luis Rush MD aftercare 07/07/2018 M65.311 Trigger thumb, right thumb Luis Rush MD 07/07/2018 Z47.89 Encounter for other orthopedic Luis Rush MD aftercare Plan of Treatment Future Appointment(s):01/21/2019 2:00 pm - Shana Borrero MD at [facility] Ielqdpdlyb61/26/2019 - Shana Borrero, MDR80.9 Proteinuria, wmmcxqmyllqY27.9 Chronic kidney disease, rzfnnmzjddqI57 Essential (primary) hypertension Functional Status Description No Information Available Mental Status Description No Information Available Referrals Refer to Dr Reason for Referral Status Appt Date Jorge Velasco MD M spike and proteinuria 1.4 g r/o myeloma/ Sent amyloid can consider kidney biopsy if needed after your eval within 2 weeks [address] [place] [address] [phone]
--- OUTSIDE RECORDS SUMMARY | 2019-01-27 18:40 | XMS REPORT | Continuity of Care Document ---
:1955 External Reference #:[id number] Author Name Shana Borrero MD (transmitted by agent of provider Gaye Moore) Address [address] [place] [address] Care Team Providers Name Role Phone Napoleon Arriaga MD - Family Medicine Care Team Information Caving Guide [phone] López Lynch MD - Family Medicine Care Team Information Caving Guide Problems Active Problems Provider Date Snapping thumb [...] SIG Qnty Indications Ordering Provider Date Digox 1/2 tab by 45tabs Qutaybeh S. 04/14/2017 250mcg [...] M.D. 08/31/2018 Injection Technetium TC 99M Asaf Diallo, DO [facility] 06/19/2017 Tetrofosmin, Per Unit Dose Up To 40 Millicuries Injection Celestone 3 mg and 3mg Daxa Obando, 07/27/2012 Injection Ade Celestone 3 mg and 3mg Daxa Obando, 07/27/2012 Injection Ade Celestone 3 mg and 3mg Luis Rose M.D. 11/27/2011 Injection Immunizations CPT Code Status Date Vaccine Lot # [id number] Given 01/05/2015 Pneumonia Vaccine 11201 Given 01/05/2015 Influenza Virus Vaccine, Split, Preserv [...] Date Facility Test Result H/L Range Note Creatinine 24HR 12/21/2018 [facility] Urine Collection 24 hr Urine [address] [place] [address] [phone] Urine Total Volume 3800 mL Urine Creatinine Concentration 25.85 mg/dL Urine Creatinine/24 Hour 982.30 mg/24Hr 600-1800 Total Protein 12/21/2018 [facility] Urine TP Concentration 6 mg/ dL 24HR Urine [address] [place], [place] [address] [phone] Urine Total Protein/24HR 228 mg/24Hr High 0-165 Microalbumin 24HR 12/21/2018 [facility] Ur Microalbumin < 15.[address] (mg/L) mg/L [place], [place] [address] [phone] Urine Microalbumin (mg/24Hr) TNP mg/24hr Less than 30 1 Urine Microalbumin (mcg/min) TNP mcg/min Less than 20 2 Urinalysis Profile 12/21/2018 [facility] Urine Color Yellow [address] [place] [address] [phone] Urine Appearance Cloudy Urine Specific Wesley 1.019 Normal 1.010-1.030 Urine pH 5.0 Normal [...] Cell Present Abnormal Absent Comp Metabolic 12/21/2018 [facility] Sodium 142 mmol/L Normal 135-[address] [place] [address] [phone] Potassium 4.1 mmol/L Normal 3.5-5.0 Chloride 104 [...] Egfr Non- 61.5 >60 Egfr 74.4 >60 3 CBC Auto 12/21/2018 [facility] White Blood 6.2 10^3/uL Normal 3.5-10.[address] [place] [address] [phone] Red Blood Count 4.84 10^6/uL Normal 3.70-4.87 [...] Blood Cells % 0.1 Laboratory test 12/04/2018 [facility] Beta 2 2.24 [address] Microglobulin g/[place] [address] [phone] Igg Subclasses 12/04/2018 [facility] Total IgG 1510 mg/dL 767 - [address] [place] [address] [phone] Immunoglobulin G1 954 mg/dL Abnormal 341 - 894 Immunoglobulin G2 325 mg/dL 171 - 632 Immunoglobulin G3 94.3 mg/dL 5 Immunoglobulin G4 273.0 mg/dL Abnormal 6 Microalbumin 24HR 11/12/2018 [facility] Ur Microalbumin 43.6 mg/ L Urine [address] (mg/L) [place] [address] [phone] Urine Microalbumin (mg/24Hr) 204.9 mg/24hr High Less than 30 Urine Microalbumin (mcg/min) 142.3 mcg/min High Less than 20 Creatinine 24HR 11/12/2018 [facility] Urine Collection 24 hr Urine [address] [place] [address] [phone] Urine Total Volume 4700 mL Urine Creatinine Concentration 32.84 mg/dL Urine Creatinine/24 Hour 1543.48 mg/24Hr 600-1800 Total Protein 11/12/2018 [facility] Urine TP 34 mg/dL 24HR Urine [address] [place] [address] [phone] Urine Total Protein/24HR 1598 mg/24Hr High 0-165 Immunoglobulins 11/12/2018 [facility] Immunoglobulin G 1450 767 - 7 Serum Quant [address] mg/dL 1590 [place] [address] [phone] Immunoglobulin M 25 mg/dL Abnormal 37 - 286 Immunoglobulin A 309 mg/dL 61 - 356 Urine Culture And 10/13/2018 [facility] Urine SEE RESULT [address] [place] [address] [phone] CBC Auto Diff 10/13/2018 [facility] White Blood 6.3 10^3/uL Normal 3.5-[address] Count 0.8 [place] [address] [phone] Red Blood Count 4.94 10^6/uL High 3.70-4.87 [...] Blood Cells % 0.1 Comp Metabolic 10/13/2018 [facility] Sodium 141 mmol/L Normal 135-[address] [place] [address] [phone] Potassium 4.1 mmol/L Normal 3.5-5.0 Chloride 104 [...] Egfr Non- 57.1 >60 Egfr 69.1 >60 9 Scleroderma AB 10/13/2018 [facility] Scleroderma Ab <0.2 U 10 (SCL70) [address] [place] [address] [phone] Hepatitis C Antibody 10/13/2018 [facility] HCV Index 0.03 s/c [address] [place] [address] [phone] Hepatitis C Antibody Negative Negative Laboratory test 10/13/2018 [facility] Immunoglobulin A 309 mg/ dL 61 - [address] [place] [address] (Iga) [address] [place] [address] [phone] Hepatitis B Surface Ag Negative Negative Urinalysis Profile 10/13/2018 [facility] Urine Color Yellow [address] [place] [address] [phone] Urine Appearance Cloudy Urine Specific Wesley 1.012 Normal 1.010-1.030 Urine pH 6.0 Normal [...] Urine Squamous Epithelial Cell Present Abnormal Absent Thebes/Lambda Free 10/13/2018 [facility] Thebes Free 4.82 mg/dL Abnormal 12 Light Chains Ser [address] [place] [place] [address] [phone] Lambda Free Light Chain 2.10 mg/dL 13 Thebes/Lambda Free Light Chain 2.30 Abnormal 14 Protein 10/13/2018 [facility] Immunofixation See Comment 15 Electrophoresis [address] [place] [address] [phone] Total Protein(Pep) 7.5 g/dL 6.3 - 7.9 Albumin 3.3 g/dL Abnormal 3.4-4.7 Alpha-1 Globulin 0.3 g/dL 0.1-0.3 Alpha-2 Globulin 1.2 g/dL Abnormal 0.6-1.0 Beta Globulin 1.1 g/dL 0.7-1.2 Gamma Globulin 1.7 g/dL Abnormal 0.6-1.6 Albumin/Globulin Ratio 0.80 M Mitchel 0.6 g/dL Impression See Comment 16 Urine Protein Elctrophoresis 10/13/2018 [facility] Albumin 26 % 17 (RDM) [address] [place] [address] [phone] Alpha-1 Globulin 8 % 18 Alpha-2 Globulin 30 % 19 Beta Globulin 20 % 20 Gamma Globulin 16 % 21 Albumin/Globulin Ratio 0.34 % Impression See Comment 22 Total Protein(Pep) Urine 15 mg/dL 23 Immunofixation Urine See Comment 24 Laboratory test 10/13/2018 [facility] Glomerular Basement <0.2 U 25 finding [address] [place] [address] [phone] Anca Panel For 10/13/2018 [facility] Myeloperoxidase AB < 0.2 U 26 Vasculitis [address] [place] [address] [phone] Proteinase 3 AB < 0.2 U 27 Laboratory test 10/13/2018 [facility] Urine Creatinine 21.30 mg/ dL finding [address] [place] [address] [phone] Urine TP Concentration 29 mg/dL Eosinophil Smear NONE SEEN Urine Microalbumin 10/13/2018 [facility] Ur Microalbumin 323.0 mg/L Random [address] (mg/L) [place] [address] [phone] Urine Creatinine 84.71 mg/dL Urine Microalbumin/Creatinine 381.3 High <31 Creatinine 24HR 10/13/2018 [facility] Urine Collection 24 hr Urine [address] [place] [address] [phone] Urine Total Volume 4900 mL Urine Creatinine/24 Hour 1043.70 mg/24Hr Normal 600-1800 Total 10/13/2018 [facility] Urine Total 1421 mg/24Hr High 0- 165 Protein 24HR [address] Protein/24[place] [address] [phone] Gricelda Igg AB 10/13/2018 [facility] SS-A/Ro Antibody <0.2 U [address] [place] [address] [phone] SS-B/La Antibody <0.2 U 29 Sm (Conrad) IgG Antibody <0.2 U 30 [employer] Antibody, IgG 0.3 U 31 Scl-70 (Scleroderma) Antibody <0.2 U 32 Nidhi-1 Antibody <0.2 U 33 Xray 08/31/2018 [facility] Professor In House Inj/Aspir Major JT <pending> Or Bursa W/ US Creatinine 24HR 08/06/2018 [facility] Urine Collection 24 hr Urine [address] [place] [address] [phone] Urine Total Volume 3750 mL Urine Creatinine/24 Hour 1168.50 mg/24Hr Normal 600-1800 Laboratory test 08/06/2018 [facility] Urine TP 21 mg/dL finding [address] [place] [address] [phone] Laboratory test 08/06/2018 [facility] Urine Creatinine 31.[address] Concentration mg/[place] [address] [phone] Total Protein 08/06/2018 [facility] Urine Total 787 High 0-16 24HR Urine [address] Protein/24HR mg/24Hr 5 [place] [address] [phone] Laboratory test 08/06/2018 [facility] Anti Nuclear 1.0 U 34 [place] [address] [phone] Hemoglobin A1c (Glyco HGB) 5.9 % High 4.0-5.6 35 Creatinine Clearance 08/06/2018 [facility] Urine Collection 24 [place] [address] [phone] Urine Total Volume 3750 mL Creatinine, Serum 0.96 mg/dL High 0.51-0.95 Creatinine Clearance 85 mL/min Low 88-128 Iron & Iron Binding 08/06/2018 [facility] Iron 91 g/dL Normal 50-212 [place] [address] [phone] Unsaturated Iron Binding < 280 g/dL Total Iron Binding Capacity 295 g/dL Normal 250-450 % Iron Saturation 31 % Normal 15-55 Laboratory test 08/06/2018 [facility] Ferritin 59.4 ng/mL Normal 11-307 [place] [address] [phone] Transferrin 211 mg/dL Normal 203-362 Comp Metabolic 08/06/2018 [facility] Sodium 141 mmol/L Normal 135-145 [place] [address] [phone] Potassium 4.2 mmol/L Normal 3.5-5.0 Chloride 106 [...] Egfr Non- 58.5 >60 Egfr 70.8 >60 36 Laboratory test 08/06/2018 [facility] Cortisol 10.35 g/dL [address] [place] [address] [phone] Urine Culture And 08/06/2018 [facility] Urine Culture SEE RESULT [address] [place] [address] [phone] Urinalysis Profile 08/06/2018 [facility] Urine Color Yellow [address] [place] [address] [phone] Urine Appearance Cloudy Urine Specific Wesley 1.020 Normal 1.010-1.030 Urine pH 5.0 Normal [...] Urine Hyaline Casts Present Abnormal Absent 1 Unable to calculate due to low microalbumin 2 Unable to calculate due to low microalbumin 3 Because ethnic data is not always readily [...] 15-29 5 Kidney failure <15 (or dialysis) 4 REFERENCE VALUE 1.21 - 2.70 Test Performed by: [facility] [place] [address] Pharmacy Technician Per Diem: Stewart Monson M.D. Ph.D.; CLIA# [id number] 5 REFERENCE VALUE 18.4 - 106.0 6 REFERENCE VALUE 2.4 - 121.0 Test Performed by: [facility] [place] [address] Pharmacy Technician Per Diem: Stewart Monson M.D. Ph.D.; CLIA# [id number] 7 Test Performed by: [facility] [place] [address] 8 SEE RESULT BELOW Name: STACIE BREAUX : [address]: Shana Borrero MD Acct: [id number] Unit: [id number] AGE: 63 Location: LAB Re10/13/18 SEX: F Status: REG REF SPEC: [id number] ASHWINI: 10/13/18 [facility] DR: Shana Borrero MD REQ: [id number] RECD: 10/13/18 STATUS: VERONICA CULVER DR: Napoleon Arriaga MD _ SOURCE: URINE SPDESC: ORDERED: Urine Culture Procedure Result Reported Site Urine Culture Final 10/14/18- 1602 ML No Growth (<1,000 CFU/mL) * ML - Main Lab . END OF REPORT DEPARTMENT OF PATHOLOGY, [address] [place] [address] Saul Kaba M.D. Director [facility] # [id number] 9 Because ethnic data is not always readily [...] 15-29 5 Kidney failure <15 (or dialysis) 10 REFERENCE VALUE <1.0 (Negative) Test Performed by: [facility] [place] [address] 11 Test Performed by: [facility] [place] [address] 12 REFERENCE VALUE 0.3300-1.94 13 REFERENCE VALUE 0.5700-2.63 14 Elevated free light chain ratios between 1.66 and 3.00 may occur due to polyclonal hypergammaglobulinemia or impaired renal clearance. An isolated increased free light chain ratio in this range should be interpreted with caution, and clinical correlation is recommended. REFERENCE VALUE 0.2600-1.65 Test Performed by: [facility] [place] [address] 15 Monoclonal IgG kappa. C/W MGUS, myeloma, amyloidosis, etc. Suggest 24-hr urine Monoclonal Protein Studies. Test Performed by: [facility] [place] [address] 16 M-spike in gamma fraction. See Immunofixation. Test Performed by: [place] [address] 17 4 mg/dL 18 1 mg/dL 19 5 mg/dL 20 3 mg/dL 21 2 mg/dL 22 Small abnormality in gamma fraction. See Immunofixation. 23 ADDITIONAL INFORMATION On 09/24/2016 the total protein assay method changed resulting in approximately a 15% increase in protein values. Test Performed by: [place] [address] Test Performed by: [facility] - [address] [address] 24 Small monoclonal kappa plus IgG kappa fragment in gamma fraction. Test Performed by: [address] [address] 25 REFERENCE VALUE <1.0 (Negative) Test Performed by: [facility] [employer] [address] [place] [address] 26 REFERENCE VALUE <0.4 (Negative) 27 REFERENCE VALUE <0.4 (Negative) Test Performed by: [facility] - [facility] [place] [employer] [place] [address] 28 REFERENCE VALUE <1.0 (Negative) 29 REFERENCE VALUE <1.0 (Negative) 30 REFERENCE VALUE <1.0 (Negative) 31 REFERENCE VALUE <1.0 (Negative) 32 REFERENCE VALUE <1.0 (Negative) 33 REFERENCE VALUE <1.0 (Negative) Test Performed by: [facility] [employer] [address] [place] [address] 34 REFERENCE VALUE <=1.0 (Negative) Test Performed by: [facility] [employer] [address] [place] [address] 35 Therapeutic target for the treatment of diabetes mellitus patients is <7% HBA1C, and in selective patients <6.0%. Please refer to [place] [employer] diabetic care guidelines for further information. 36 Because ethnic data is not always readily [...] 15-29 5 Kidney failure <15 (or dialysis) 37 AM 8.7-22.4 PM <10 38 SEE RESULT BELOW Name: STACIE BREAUX : [address]: Shana Borrero MD Acct: [id number] Unit: [id number] AGE: 63 [facility] SEX: F Status: REG REF SPEC: [id number] ASHWINI: 08/06/18 [facility] DR: Shana Borrero MD REQ: [id number] RECD: 08/06/18 STATUS: VERONICA GERBER DR: Cris Call MD _ SOURCE: URINE SPDESC: ORDERED: Urine Culture Procedure Result Reported Site Urine Culture Final 08/07/18- 1310 ML No growth of clinically significant organisms * ML - Main Lab . END OF REPORT DEPARTMENT OF PATHOLOGY, [address] [place] [address] Saul Kaba M.D. Director [facility] # [id number] Procedures Date Code Description Status 12/24/2018 66791 Icd Eval Sing,Dual,Multi Lead Remote Recpt Transm Tech Completed Rev Tech S 12/24/2018 67197 Icd Check Remote Up To 90 Days Single,Dual,Multiple Completed Lead 12/01/201824689 Inject Tendon Sheath Or Ligament Aponeurosis Eg Plantar Completed Fascia 09/16/2018 84224 Echocardiogram, Limited Study Completed 09/16/2018 70837 Echocardiogram, Limited Study Completed 09/07/2018 80912 Icd eval w/iterative adjment single lead Icd Completed 09/07/2018 00477 Icd eval w/iterative adjment single lead Icd Completed 08/31/201830319 Inj/Aspir Major JT Or Bursa W/ US Completed 07/21/2018 77938148 Mammogram Completed Medical Devices Description No Information Available Encounters Type Date Location Provider Dx Diagnosis Office Visit 12/01/2018 [facility] Luis Rush, M65.332 Trigger finger, 8:00a at [facility] left middle finger Office Visit 11/23/2018 [facility] Nephmanohar Saldana D47.2 Monoclonal 1:30p MD Gissell gammopathy N18.9 Chronic kidney disease, unspecified Office Visit 10/28/2018 [facility] Nephrology Shana D47.2 Monoclonal 11:00a MD Gissell gammopathy Office Visit 09/14/2018 [place] Walker, M16.12 Unilateral 2:45p Orthopedics at .D. primary [place] osteoarthritis, left hip M25.552 Pain in left hip Office Visit 09/03/2018 9:00a [place] Cris S. N18.9 Chronic kidney Cardiology Ade Call disease, unspecified I25.5 Ischemic cardiomyopathy R94.31 Abnormal electrocardiogram [ECG] [EKG] Z95.810 Presence of automatic (implantable) cardiac defibrillator E78.5 Hyperlipidemia, unspecified Z98.61 Coronary angioplasty status Z01.810 Encounter for preprocedural cardiovascular examination I25.10 Athscl heart disease of [place] coronary artery w/o ang pctrs M16.12 Unilateral primary osteoarthritis, left hip Office Visit 08/31/2018 8:00a [facility] Kelsey Walker, M25.552 Pain in left at [facility].D hip M16.12 Unilateral primary osteoarthritis, left hip Office Visit 08/28/2018 11:00a [facility] Nephrology Shana R80.9 Proteinuria, MD Gissell unspecified N18.9 Chronic kidney disease, unspecified Office Visit 06/24/2018 10:00a [facility] Nephrology Shana N18.9 Chronic kidney MD Gissell disease, unspecified I95.9 Hypotension, unspecified I25.5 Ischemic cardiomyopathy Assessments Date Code Description Provider 12/24/2018 R80.9 [...] Schedule 09/16/2018 Z95.810 Presence of automatic (implantable) [place] [facility] Schedule cardiac defibrillator 09/16/2018 R94.31 Abnormal electrocardiogram [ECG] [EKG] [place] [facility] Schedule 09/16/2018 Z98.61 Coronary angioplasty status [place] [facility] Schedule 09/14/2018 M16.12 Unilateral primary osteoarthritis, [...] Call M.D. 09/03/2018 Z01.810 Encounter for preprocedural Katelyn UmanaD. 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 09/03/2018 M16.12 Unilateral primary [...] for other orthopedic Luis Rush MD aftercare 06/24/2018 N18.9 Chronic kidney disease, maddisonified Shana Borrero MD 06/24/2018 I95.9 Hypotension, maddisonified Shana Borrero MD 06/24/2018 I25.5 Ischemic cardiomyopathy Shana Borrero MD Plan of Treatment Future Appointment(s):01/21/2019 2:00 pm - Shana Borrero MD at [facility] Flooaahqvt18/26/2019 - Shana Borrero, MDR80.9 Proteinuria, aqnthoasrqyQ20.9 Chronic kidney disease, aylcoijloibA88 Essential (primary) hypertension Functional Status Description No Information Available Mental Status Description No Information Available Referrals Refer to Dr Reason for Referral Status Appt Date Jorge Velasco MD M spike and proteinuria 1.4 g r/o myeloma/ Sent amyloid can consider kidney biopsy if needed after your eval within 2 weeks [address] [place] [address] [phone]
--- OUTSIDE RECORDS SUMMARY | 2019-01-27 18:40 | XMS REPORT | Continuity of Care Document ---
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 06/21/2015 ER every day Ade Call 25mg Tablets ER 24HR Aspir-81 1 a day 90tabs Tom Myers, 07/25/2014 81mg Tablets Ade Reyna 1 tab by mouth 180tabs Gita Madrid, 90mg Tablets twice a day N.P. Co Q-10 1 by mouth Unknown 200mg Capsules every day Vitamin D 1 by mouth Unknown 2000Unit every day Capsules History Medications Tramadol HCL 1-2 tablets by 30tabs Luis Rush, 06/22/2018 - 50mg mouth every 6 MD Unknown Tablets hours as needed pain Losartan Potassium 1/2 tab by mouth 30tabs I25.5 Gita Madrid, 2018 - at night 06/09/18 N.P. 06/23/2018 25mg Tablets hold Medications Administered in Office Medication SIG Qnty Indications Ordering Provider Date Celestone 3 mg and 3mg Luis Rush MD 12/01/2018 Injection Depomedrol 40MG Kelsey Walker M.D. 08/31/2018 Injection Technetium TC 99M Asaf Diallo, DO LOCATED WITHIN [facility] 06/19/2017 Tetrofosmin, Per Unit Dose Up To 40 Millicuries Injection Celestone 3 mg and 3mg Daxa Obando, 07/27/2012 Injection Ade Celestone 3 mg and 3mg Daxa Obando, 07/27/2012 Injection Ade Kwan 3 mg and 3mg Luis Rose M.D. 11/27/2011 Injection Immunizations CPT Code Status Date Vaccine Lot # [id number] Given 01/05/2015 Pneumonia Vaccine [id number] Given 01/05/2015 Influenza Virus Vaccine, Split, Preserv Free, Intradermal Use Vital Signs Date Vital Result Comment 12/01/2018 8:04am Height 64.75 inches 5'4.75" Weight 165.00 lb Heart Rate 73 /min BP Systolic 118 mmHg BP Diastolic 78 mmHg Respiratory Rate 16 /min Body Temperature 98.0 F Pain Level 2 BMI (Body Mass Index) 27.7 kg/m2 11/23/2018 1:13pm Height 64.75 inches 5'4.75" Weight 167.00 lb Heart Rate 81 /min BP Systolic Sitting 111 mmHg reg cuff left arm BP Diastolic Sitting 78 mmHg reg cuff left arm O2 % BldC Oximetry 97 % room air BMI (Body Mass Index) 28.0 kg/m2 Results Test Date Facility Test Result H/L Range Note Immunoglobulins 11/13/19 [facility] Immunoglobulin G 1450 mg/dL 767 - 1 Serum Quant [address] [place] [address] [phone] Immunoglobulin M 25 mg/dL Abnormal 37 - 286 Immunoglobulin A 309 mg/dL 61 - 356 Total Protein 11/12/2018 [facility] Urine TP 34 mg/dL 24HR Urine [address] [place] [address] [phone] Urine Total Protein/24HR 1598 mg/24Hr High 0-165 Creatinine 24HR 11/12/2018 [facility] Urine Collection 24 hr Urine [address] [place] [address] [phone] Urine Total Volume 4700 mL Urine Creatinine Concentration 32.84 mg/dL Urine Creatinine/24 Hour 1543.48 mg/24Hr 600-1800 Microalbumin 24HR 11/12/2018 [facility] Ur Microalbumin 43.6 mg/ L Urine [address] (mg/L) [place] [address] [phone] Urine Microalbumin (mg/24Hr) 204.9 mg/24hr High Less than 30 Urine Microalbumin (mcg/min) 142.3 mcg/min High Less than 20 Urine Culture And 10/13/2018 [facility] Urine SEE RESULT [address] [place] [address] [phone] CBC Auto Diff 10/13/2018 [facility] White Blood 6.3 10^3/uL Normal 3.5-[address] Count 0.8 [place] [address] [phone] Red Blood Count 4.94 10^6/uL High 3.70-4.87 [...] Blood Cells % 0.1 Comp Metabolic 10/13/2018 [facility] Sodium 141 mmol/L Normal 135-[address] [place] [address] [phone] Potassium 4.1 mmol/L Normal 3.5-5.0 Chloride 104 [...] Egfr Non- 57.1 >60 Egfr 69.1 >60 3 Scleroderma AB (SCL70) 10/13/2018 [facility] Scleroderma Ab < 0.[address] [place] [address] [phone] Hepatitis C Antibody 10/13/2018 [facility] HCV Index 0.03 s/c [address] [place] [address] [phone] Hepatitis C Antibody Negative Negative Laboratory test 10/13/2018 [facility] Immunoglobulin A 309 mg/ dL 61 - [address] (Iga) [address] [place] [address] [phone] Hepatitis B Surface Ag Negative Negative Urinalysis Profile 10/13/2018 [facility] Urine Color Yellow [address] [place] [address] [phone] Urine Appearance Cloudy Urine Specific [place] 1.012 Normal 1.010-1.030 Urine pH 6.0 Normal [...] Urine Squamous Epithelial Cell Present Abnormal Absent [place]/Lambda Free 10/13/2018 [facility] [place] Free 4.82 mg/dL Abnormal 6 Light Chains Ser [address] [place] [address] [phone] Lambda Free Light Chain 2.10 mg/dL 7 [place]/Lambda Free Light Chain 2.30 Abnormal 8 Gricelda Igg AB Reflex 10/13/2018 [facility] SS-A/Ro Antibody <0.2 U [address] [place] [address] [phone] SS-B/La Antibody <0.2 U 10 Sm (Conrad) IgG Antibody <0.2 U 11 LIEUTENANT COLONEL Antibody, IgG 0.3 U 12 Scl-70 (Scleroderma) Antibody <0.2 U 13 Nidhi-1 Antibody <0.2 U 14 Total Protein 10/13/2018 [facility] Urine Total 1421 High 0- 165 24HR Urine [address] Protein/24HR mg/24[place] [address] [phone] Creatinine 24HR 10/13/2018 [facility] Urine Collection 24 hr Urine [address] [place] [address] [phone] Urine Total Volume 4900 mL Urine Creatinine/24 Hour 1043.70 mg/24Hr Normal 600-1800 Urine Microalbumin 10/13/2018 [facility] Ur Microalbumin 323.0 mg/L Random [address] (mg/L) [place] [address] [phone] Urine Creatinine 84.71 mg/dL Urine Microalbumin/Creatinine 381.3 High <31 Laboratory test 10/13/2018 [facility] Urine Creatinine 21.30 mg/ dL finding [address] [place] [address] [phone] Urine TP Concentration 29 mg/dL Eosinophil Smear NONE SEEN Anca Panel For 10/13/2018 [facility] Myeloperoxidase AB < 0.2 U [address] [place] [address] [phone] Proteinase 3 AB < 0.2 U 16 Laboratory test 10/13/2018 [facility] Glomerular <0.2 U [address] Basement [place] [address] [phone] Urine Protein 10/13/2018 [facility] Albumin 26 % 18 Elctrophoresis (RDM) [address] [place] [address] [phone] Alpha-1 Globulin 8 % 19 Alpha-2 Globulin 30 % 20 Beta Globulin 20 % 21 Gamma Globulin 16 % 22 Albumin/Globulin Ratio 0.34 % Impression See Comment 23 Total Protein(Pep) Urine 15 mg/dL 24 Immunofixation Urine See Comment 25 Protein 10/13/2018 [facility] Immunofixation See Comment [address] [place] [address] [phone] Total Protein(Pep) 7.5 g/dL 6.3 - 7.9 Albumin 3.3 g/dL Abnormal 3.4-4.7 Alpha-1 Globulin 0.3 g/dL 0.1-0.3 Alpha-2 Globulin 1.2 g/dL Abnormal 0.6-1.0 Beta Globulin 1.1 g/dL 0.7-1.2 Gamma Globulin 1.7 g/dL Abnormal 0.6-1.6 Albumin/Globulin Ratio 0.80 M Mtichel 0.6 g/dL Impression See Comment 27 Xray 08/31/2018 [facility] Sensor Operator In House Inj/Aspir <pending> Major JT Or Bursa W/ US Urine Culture And 08/06/2018 [facility] Urine Culture SEE RESULT [address] [place] [address] [phone] Laboratory test 08/06/2018 [facility] Cortisol 10.35 g/dL [address] [place] [address] [phone] Comp Metabolic 08/06/2018 [facility] Sodium 141 mmol/L Normal 135-[address] [place] [address] [phone] Potassium 4.2 mmol/L Normal 3.5-5.0 Chloride 106 [...] Egfr Non- 58.5 >60 Egfr 70.8 >60 30 Laboratory test 08/06/2018 [facility] Ferritin 59.4 ng/mL Normal 11-[address] [place] [address] [phone] Transferrin 211 mg/dL Normal 203-362 Iron & Iron Binding 08/06/2018 [facility] Iron 91 g/dL Normal 50-[address] [place] [address] [phone] Unsaturated Iron Binding < 280 g/dL Total Iron Binding Capacity 295 g/dL Normal 250-450 % Iron Saturation 31 % Normal 15-55 Creatinine Clearance 08/06/2018 [facility] Urine Collection [address] [place] [address] [phone] Urine Total Volume 3750 mL Creatinine, Serum 0.96 mg/dL High 0.51-0.95 Creatinine Clearance 85 mL/min Low 88-128 Laboratory test 08/06/2018 [facility] Anti Nuclear 1.0 U [address] [place] [place] [address] [phone] Hemoglobin A1c (Glyco HGB) 5.9 % High 4.0-5.6 32 Total Protein 08/06/2018 [facility] Urine Total 787 mg/24Hr High 0-165 24HR Urine [address] Protein/24[place] [address] [phone] Laboratory test 08/06/2018 [facility] Urine Creatinine 31.16 mg/ dL finding [address] [place] [address] [phone] Laboratory test 08/06/2018 [facility] Urine TP 21 mg/dL finding [address] [place] [place] [address] [phone] Creatinine 24HR 08/06/2018 [facility] Urine Collection 24 hr Urine [address] [place] [address] [phone] Urine Total Volume 3750 mL Urine Creatinine/24 Hour 1168.50 mg/24Hr Normal 600-1800 Urinalysis Profile 08/06/2018 [facility] Urine Color Yellow [address] [place] [address] [phone] Urine Appearance Cloudy Urine Specific [place] 1.020 Normal 1.010-1.030 Urine pH 5.0 Normal [...] Urine Hyaline Casts Present Abnormal Absent 1 Test Performed by: [facility] [address] [place] [address] 2 SEE RESULT BELOW Name: STACIE BREAUX : [address]: Shana Borrero MD Acct: [id number] Unit: [id number] AGE: 63 Location: LAB Re10/13/18 SEX: F Status: REG REF SPEC: [id number] ASHWINI: 10/13/18 [facility] DR: Shana Borrero MD REQ: [id number] RECD: 10/13/18 STATUS: VERONICA CULVER DR: Napoleon Arriaga MD _ SOURCE: URINE SPDESC: ORDERED: Urine Culture Procedure Result Reported Site Urine Culture Final 10/14/18- 1602 ML No Growth (<1,000 CFU/mL) * ML - Main Lab . END OF REPORT DEPARTMENT OF PATHOLOGY, [address] [place] [address] Saul Kaba M.D. Director [facility] # [id number] 3 Because ethnic data is not always [...] failure <15 (or dialysis) 4 REFERENCE VALUE <1.0 (Negative) Test Performed by: [place] [address] 5 Test Performed by: [place] [address] 6 REFERENCE VALUE 0.3300-1.94 7 REFERENCE VALUE 0.5700-2.63 8 Elevated free light chain ratios between 1.66 and 3.00 may occur due to polyclonal hypergammaglobulinemia or impaired renal clearance. An isolated increased free light chain ratio in this range should be interpreted with caution, and clinical correlation is recommended. REFERENCE VALUE 0.2600-1.65 Test Performed by: [facility] [email or web address] [address] [place] [id number] 9 REFERENCE VALUE <1.0 (Negative) 10 REFERENCE VALUE <1.0 (Negative) 11 REFERENCE VALUE <1.0 (Negative) 12 REFERENCE VALUE <1.0 (Negative) 13 REFERENCE VALUE <1.0 (Negative) 14 REFERENCE VALUE <1.0 (Negative) Test Performed by: [facility] [email or web address] [address] [place] [address] 15 REFERENCE VALUE <0.4 (Negative) 16 REFERENCE VALUE <0.4 (Negative) Test Performed by: [place] [address] 17 REFERENCE VALUE <1.0 (Negative) Test Performed by: [place] [address] 18 4 mg/dL 19 1 mg/dL 20 5 mg/dL 21 3 mg/dL 22 2 mg/dL 23 Small abnormality in gamma fraction. See Immunofixation. 24 ADDITIONAL INFORMATION On 09/24/2016 the total protein assay method changed resulting in approximately a 15% increase in protein values. Test Performed by: [place] [address] Test Performed by: [place] [address] 25 Small monoclonal kappa plus IgG kappa fragment in gamma fraction. Test Performed by: [place] [address] 26 Monoclonal IgG kappa. C/W MGUS, myeloma, amyloidosis, etc. Suggest 24-hr urine Monoclonal Protein Studies. Test Performed by: [place] [address] 27 M-spike in gamma fraction. See Immunofixation. Test Performed by: [place] [address] 28 SEE RESULT BELOW Name: STACIE BREAUX : [address]: Shana Borrero MD Acct: [id number] Unit: [id number] AGE: 63 Location: LABCRAFT Re08/06/18 SEX: F Status: REG REF SPEC: [id number] ASHWINI: 08/06/[address]: Shana Borrero MD REQ: [id number] RECD: 08/06/18 STATUS: COMP PALOMO DR: Cris Call MD _ SOURCE: URINE SPDESC: ORDERED: Urine Culture Procedure Result Reported Site Urine Culture Final 08/07/18- 1310 ML No growth of clinically significant organisms * ML - Main Lab . END OF REPORT DEPARTMENT OF PATHOLOGY, [address] [place] [address] Saul Kaba M.D. Director [facility] # [id number] 29 AM 8.7-22.4 PM <10 30 Because ethnic data is not always readily [...] 15-29 5 Kidney failure <15 (or dialysis) 31 REFERENCE VALUE <=1.0 (Negative) Test Performed by: [facility] [address] [place] [address] 32 Therapeutic target for the treatment of diabetes mellitus patients is <7% HBA1C, and in selective patients <6.0%. Please refer to [place] [employer] diabetic care guidelines for further information. Procedures Date Code Description Status 12/01/201874893 Inject Tendon Sheath Or Ligament Aponeurosis Eg Plantar Completed Fascia 09/16/2018 00207 Echocardiogram, Limited Study Completed 09/16/2018 02623 Echocardiogram, Limited Study Completed 09/07/2018 43849 Icd eval w/iterative adjment single lead Icd Completed 09/07/2018 66710 Icd eval w/iterative adjment single lead Icd Completed 08/31/2018 97299 Inj/Aspir Major JT Or Bursa W/ US Completed 07/21/2018 73556619 Mammogram Completed 06/22/2018 15454 Trigger Finger Release Incision / Tendon Sheath Completed Incision 06/22/2018 44461 Trigger Finger Release Incision / Tendon Sheath Completed Incision 06/03/2018 26167 EKG Tracing & Interpretation Completed Medical Devices Description No Information Available Encounters Type Date Location Provider Dx Diagnosis Office Visit 11/23/2018 [facility] Nephrology Shana Borrero, 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 primary C.M.A. 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 M.D. hip M16.12 Unilateral primary osteoarthritis, left hip Office Visit 08/28/2018 11:00a [facility] Nephrology Shana R80.9 Proteinuria, MD Gissell unspecified N18.9 Chronic kidney disease, unspecified Office Visit 06/24/2018 10:00a [facility] Nephrology Shana N18.9 Chronic kidney MD Gissell disease, unspecified I95.9 Hypotension, unspecified I25.5 Ischemic cardiomyopathy Office Visit 06/03/2018 8:30a Abdiaziz Pelayo SCarolyn I25.5 Ischemic Cardiology Julius, N.P. cardiomyopathy Z95.810 Presence of automatic (implantable) cardiac defibrillator I34.0 Nonrheumatic mitral (valve) insufficiency E78.5 Hyperlipidemia, unspecified I47.1 Supraventricular tachycardia Office Visit 06/02/2018 10:30a Orthopedic Luis M65.311 Trigger thumb, Services Of Darvin Rush MD right thumb Assessments Date Code Description Provider 12/01/2018 M65.332 Trigger finger, left middle finger Luis Rush MD 11/23/2018 D47.2 Monoclonal gammopathy Shana Borrero MD 11/23/2018 N18.9 Chronic kidney disease, unspecified Shana Borrero MD 10/28/2018 D47.2 Monoclonal gammopathy Shana Borrero MD 09/16/2018 I25.5 Ischemic cardiomyopathy Cris Call M.D. 09/16/2018 I25.5 Ischemic cardiomyopathy [facility] Schedule 09/16/2018 Z95.810 Presence of automatic (implantable) [facility] [facility] Schedule cardiac defibrillator 09/16/2018 R94.31 Abnormal electrocardiogram [ECG] [EKG] [facility] 09/16/2018 Z98.61 Coronary angioplasty status [facility] Schedule 09/14/2018 M16.12 Unilateral primary osteoarthritis, [...] Call M.D. 09/03/2018 Z01.810 Encounter for preprocedural Cris Call M.D. 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 left hip 08/31/2018 M25.552 Pain in left hip Kelsey Walker M.D. 08/31/2018 M16.12 Unilateral primary osteoarthritis, Kelsey Walker M.D. left hip 08/28/2018 R80.9 Proteinuria, maddisonified Shana Borrero MD 08/28/2018 N18.9 Chronic kidney disease, maddisonified Shana Borrero MD 08/04/2018 M65.311 Trigger thumb, right thumb Luis Rsuh MD 08/04/2018 Z47.89 Encounter for other orthopedic Luis Rush MD aftercare 07/07/2018 M65.311 Trigger thumb, right thumb Luis Rush MD 07/07/2018 Z47.89 Encounter for other orthopedic Luis Rush MD aftercare 06/24/2018 N18.9 Chronic kidney disease, rubina Borrero MD 06/24/2018 I95.9 Hypotension, rubina Borrero MD 06/24/2018 I25.5 Ischemic cardiomyopathy Shana Borrero MD 06/22/2018 M65.311 Trigger thumb, right thumb KIM Thurston 06/22/2018 M65.311 Trigger thumb, right thumb Luis Rush MD 06/03/2018 R94.31 Abnormal electrocardiogram [ECG] [EKG] Cris Call M.D. 06/03/2018 I25.5 Ischemic cardiomyopathy Gita Madrid, N.P. 06/03/2018 Z95.810 Presence of automatic (implantable) Gita S. Foster, N.P. cardiac defibrillator 06/03/2018 I34.0 Nonrheumatic mitral (valve) Gita Madrid, N.P. insufficiency 06/03/2018 E78.5 Hyperlipidemia, unspecified Gita Madrid, N.P. 06/03/2018 I47.1 Supraventricular tachycardia Gita Madrid, N.P. 06/02/2018 M65.311 Trigger thumb, right thumb Luis Rush MD Plan of Treatment Future Appointment(s):12/24/2018 2:00 pm - Shana Borrero MD at [facility] Dqcpcygrnw65/03/2019 - Luis Rush, MDM65.332 Trigger finger, left middle fingerFollow up:Follow up: As needed Functional Status Description No Information Available Mental Status Description No Information Available Referrals Refer to Reason for Referral Status Appt Date Jorge Velasco MD M spike and proteinuria 1.4 g r/o myeloma/ Created amyloid can consider kidney biopsy if needed after your eval within 2 weeks [address] [place] [phone]
[2019-01-27 18:46] LABS: INR 1.02 (0.82-1.09)
[2019-01-27 18:55] LABS: Albumin 3.6 g/dL (3.2-5.2); Albumin/Globulin Ratio 1.2 (1-3); BUN/Creatinine Ratio 13.9 (8-20); Calcium 9.2 mg/dL (8.6-10.3); EGFR African American 61.6 (>60); EGFR Non-African American 50.9 (>60); Potassium 3.7 mmol/L (3.5-5.0); Total Bilirubin 0.4 mg/dL (0.2-1.0); Total Protein 6.6 g/dL (6.4-8.9)
[2019-01-27] MEDS ORDERED: Nitroglycerin TAB 0.4 MG* 0.4 MG TAB SL ONE (20:41)
--- NOTE | 2019-01-27 20:48 | ED ---
HPI Chest Pain - HPI Summary HPI Summary: Patient is a 64 y/o F w/ Hx of [place] w/ 100% occlusion of LAD and one cardiac stent (June [address] Bar[place] [facility] [place] ICD (October [address] Dykes in [place]) and v-tach who [place] [facility] [place] with complaints of left-sided chest pain that onset 01/27/19 at around 1530. She states that she had radiation of pain to her neck, left arm and left upper back and also endorses onset of dizziness. She states that she subsequently took nitro SL at 1550 and another at 1630. Patient rested for a bit, but her pain has been constant since onset and did not resolve with nitro. As a result, she came to ED. Intensity of pain is rated 8/10 at present and was 5-6/10 at initial onset. Radiation of pain has since resolved. No palpitations, SOB, diaphoresis, chills, abdominal pain, N/V, BLE edema, calf pain, cough, congestion noted. Patient additionally states that she has had some increased exercise intolerance since March of 2018. She had a stress test and echo done which is reported to have been borderline. She reports EF of 30-35%, which is her baseline. She has never smoked tobacco or used drugs. PSHx of hiatal hernia repair, hysterectomy, left arm surgery reported. Pulse of 65, o2 sat 99, 135/78 BP noted in the room. Patient is on Digoxin, .125 mg, baby ASA, metoprolol, and brilinta. She additionally notes that she has been evaluated for elevated M-proteins; she states that it was determined that she did not have multiple myeloma and was diagnosed with MGUS. Home medications and allergies are reviewed. - History of Current Complaint Chief Complaint: EDChestPainROMI Time Seen by Provider: 01/27/19 20:20 Hx Obtained From: Patient Onset/Duration: Started Hours Ago, Still Present, Worse Since Timing: Constant, Lasting Hours Initial Severity: Moderate Current Severity: Severe Pain Intensity: 6 Pain Scale Used: 0-10 Numeric Chest Pain Location: Left Anterior Chest Pain Radiates: Yes Chest Pain Radiates To:: Back - left upper, Arm - left, Neck Associated Signs and Symptoms: Positive: Chest Pain, Dizziness. Negative: Shortness of Breath, Swelling, Chills, Diaphoresis, Nausea, Palpitations, Cough , Productive Cough, Nonproductive Cough, Abdominal Pain, Calf Pain/Swelling, Vomiting, Nasal Congestion, Edema - Additional Pertinent History Primary Care Physician: [id number] - Allergy/Home Medications Allergies/Adverse Reactions: Allergies Allergy/AdvReac Type Severity Reaction Status Date / Time lisinopril Allergy Coughing Verified 06/22/18 08:12 meperidine [From Demerol] Allergy n/v Verified 06/22/18 08:12 Penicillins Allergy sob, Verified 06/22/18 08:12 throat swells PMH/Surg Hx/FS Hx/Imm Hx Endocrine/Hematology History: Denies: Hx Diabetes Cardiovascular History: Reports: Hx Angina, Hx Auto Implanted Cardiovert Defib - [place], 06/2014, Hx Cardiac Arrest - STEMI 06/2014, Hx Congestive Heart Failure - 2014 from [place], Hx Coronary Artery Disease - STENT,2014, Hx Hypercholesterolemia, Hx Hypertension - low bp, Hx Myocardial Infarction, Hx Pacemaker/ICD Denies: Hx Valvular Heart Disease Respiratory History: Denies: Hx Asthma, Hx Chronic Obstructive Pulmonary Disease (COPD), Other Respiratory Problems/Disorders GI History: Reports: Hx Gall Bladder Disease, Hx Gastroesophageal Reflux Disease , Hx Hiatal Hernia - Denies: Other GI Disorders History: Reports: Other Problems/Disorders - stress incontinence Musculoskeletal History: Reports: Hx Arthritis - all over, Hx Back Problems, Hx Fibromyalgia, Hx Tendonitis - PLANTAR FASCITIS AND TENDONITIS, ok now, Other Musculoskeletal History Denies: Hx Osteoporosis Sensory History: Reports: Hx Contacts or Glasses - glasses, Hx Vision Problem Denies: Hx Hearing Aid Opthamlomology History: Reports: Hx Contacts or Glasses - glasses, Hx Vision Problem Neurological History: Reports: Hx Spinal Cord Injury - Herniated discs, Other Neuro Impairments/Disorders - LEFT WRIST CHRONIC PAIN Psychiatric History: Denies: Hx Panic Disorder - Cancer History Hx Chemotherapy: No Hx Radiation Therapy: No - Surgical History Surgery Procedure, Year, and Place: [facility], 2015, [facility]. 2014, left wrist, [facility] , [facility] , [facility] sept[facility], 1973, [facility] tonsilectomy, as a child Hx Anesthesia Reactions: No - Immunization History Date of Tetanus Vaccine: unknown Date of Influenza Vaccine: last flu season,, last year Infectious Disease History: No Infectious Disease History: Reports: Hx Hepatitis - Hep A as child Denies: Hx Clostridium Difficile, Hx Human Immunodeficiency Virus (HIV), Hx of Known/Suspected MRSA, Hx Shingles, Hx Tuberculosis, Hx Known/Suspected VRE, Hx Known/Suspected VRSA, History Other Infectious Disease, Traveled Outside the [place] in Last 30 Days - Family History Known Family History: Positive: Cardiac Disease - Social History Alcohol Use: None Substance Use Type: Reports: None Hx Tobacco Use: No Smoking Status (MU): Never Smoked Tobacco Have You Smoked in the Last Year: No Review of Systems Negative: Chills, Skin Diaphoresis Positive: Chest Pain. Negative: Palpitations Respiratory: Other - negative - congestion Negative: Shortness Of Breath, Cough Negative: Abdominal Pain, Vomiting, Nausea Musculoskeletal: Other - negative - calf pain Negative: Edema All Other Systems Reviewed And Are Negative: Yes Physical Exam - Summary Physical Exam Summary: Constitutional: Well-developed, Well-nourished, Alert. (-) Distressed Skin: Warm, Dry HENT: Normocephalic; Atraumatic Eyes: Conjunctiva normal Neck: Musculoskeletal ROM normal neck. (-) JVD, (-) Stridor, (-) Tracheal deviation Cardio: Rhythm regular, rate normal, Heart sounds normal; Intact distal pulses; The pedal pulses are 2+ and symmetric. Radial pulses are 2+ and symmetric. Pulmonary/Chest wall: Effort normal. (-) Respiratory distress, (-) Wheezes, (-) Rales Abd: Soft, (-) tenderness, (-) Distension, (-) Guarding, (-) Rebound Musculoskeletal: (-) Edema Neuro: Alert, Oriented x3 Psych: Mood and affect Normal Triage Information Reviewed: Yes Vital Signs On Initial Exam: Initial Vitals Temp Pulse Resp BP Pulse Ox 97.3 F 63 14 120/58 100 01/27/19 18:16 01/27/19 18:16 01/27/19 18:16 01/27/19 18:16 01/27/19 18:16 Vital Signs Reviewed: Yes Procedures - Sedation Patient Received Moderate/Deep Sedation with Procedure: No Diagnostics - Vital Signs Vital Signs Temp Pulse Resp BP Pulse Ox 01/27/19 18:16 97.3 F 63 14 120/58 100 - Laboratory Lab Results: Lab Results 01/27/19 01/27/19 01/27/19 Range/Units 18:31 18:31 18:31 WBC 7.8 (3.5-10.8) 10^3/uL RBC 4.26 (3.70-4.87) 10^6 /uL Hgb 13.0 (12.0-16.0) g/dL Hct 39 (35-47) % MCV 90 (80-97) fL MCH 31 (27-31) pg MCHC 34 (31-36) g/dL RDW 14 (10-15) % Plt Count 275 (150-450) 10^3/uL MPV 7.1 L (7.4-10.4) fL Neut % (Auto) 64.4 % Lymph % (Auto) 20.5 % Wise % (Auto) 8.7 % Eos % (Auto) 5.2 % Baso % (Auto) 1.2 % Absolute Neuts (auto) 5.0 (1.5-7.7) 10^3/ul Absolute Lymphs (auto) 1.6 (1.0-4.8) 10^3/ul Absolute Monos (auto) 0.7 (0-0.8) 10^3/ul Absolute Eos (auto) 0.4 (0-0.6) 10^3/ul Absolute Basos (auto) 0.1 (0-0.2) 10^3/ul Absolute Nucleated RBC 0.0 10^3/ul Nucleated RBC % 0.0 INR (Anticoag Therapy) 1.02 (0.82-1.09) Sodium 139 (135-145) mmol/L Potassium 3.7 (3.5-5.0) mmol/L Chloride 105 (101-111) mmol/L Carbon Dioxide 31 (22-32) mmol/L Anion Gap 3 (2-11) mmol/L BUN 15 (6-24) mg/dL Creatinine 1.08 H (0.51-0.95) mg/dL Est GFR ( Amer) 61.6 (>60) Est GFR (Non-Af Amer) 50.9 (>60) BUN/Creatinine Ratio 13.9 (8-20) Glucose 103 H (70-100) mg/dL Calcium 9.2 (8.6-10.3) mg/dL Total Bilirubin 0.40 (0.2-1.0) mg/dL AST 20 (13-39) U/L ALT 21 (7-52) U/L Alkaline Phosphatase 73 (34-104) U/L Troponin I 0.00 (<0.04) ng/mL Total Protein 6.6 (6.4-8.9) g/dL Albumin 3.6 (3.2-5.2) g/dL Globulin 3.0 (2-4) g/dL Albumin/Globulin Ratio 1.2 (1-3) Result Diagrams: 01/27/19 18:31 01/27/19 18:31 Lab Statement: Any lab studies that have been ordered have been reviewed, and results considered in the medical decision making process. - Radiology CXR Radiology Interpretation Completed By: ED Physician Summary of Radiographic Findings: No consolidation, no effusion, pacemaker noted , pending official report. - EKG 1813 Cardiac Rate: NL - rate of 61 BPM EKG Rhythm: Sinus Rhythm EKG Comparison: No Significant Change - Patient has some non-specific T-wave abnormailities that are old when compared to EKG from 04/07/2017. Summary of EKG Findings: EKG showed NSR with rate of 61 BPM. Patient has some non-specific T-wave abnormailities that are old when compared to EKG from 2017. There are no ST abnormalities to suggest ischemia. This EKG was reviewed and interpreted by Dr. Goodman. Re-Evaluation - Re-Evaluation First Eval Re-Evaluation Time: 21:50 Change: Unchanged Comment: Patient reports no change in Sx with additional nitro administration. Second trop was negative. Patient is agreeable with admission. Chest Pain Course/Dx - Course Course Of Treatment: Patient is a 64 y/o F w/ Hx of [place] w/ 100% occlusion of LAD and one cardiac stent (June [address] Barron at [facility] [place] ICD (October [address] Dykes in [place]) and v-tach who presents to [facility] with complaints of left- sided chest pain that onset 01/27/19 at around 1530. She states that she had radiation of pain to her neck, left arm and left upper back and also endorses onset of dizziness. She states that she subsequently took nitro SL at 1550 and another at 1630. Patient rested for a bit, but her pain has been constant since onset and did not resolve with nitro. As a result, she came to ED. Physical exam is unremarkable. EKG showed NSR with rate of 61 BPM. Patient has some non- specific T-wave abnormailities that are old when compared to EKG from 04/07/2017. There are no ST abnormalities to suggest ischemia. CXR showed no consolidation , no effusion, pacemaker noted. Labs were WNL with exception of MPV 7.1, creatinine 1.08, glucose 103. First and second trop were negative. Additional nitro was administered with no relief in Sx reported. Patient's case was discussed with Dr. Gomez, Dr. Gomez acceptchristiano for admission. Patient's regular medications of baby ASA and 90 mg brillinta to be given. - Diagnoses Provider Diagnoses: Chest pain - Provider Notifications Discussed Care Of Patient With: Yana Gomez Time Discussed With Above Provider: 21:53 Instructed by Provider To: Other - Patient's case was discussed with Dr. Gomez , Dr. Gomez accepts for admission. Patient's regular medications of baby ASA and 90 mg brillinta to be given. Discharge ED - Sign-Out/Discharge Documenting (check all that apply): Patient Departure - admit - Discharge Plan Condition: Stable Disposition: ADMITTED TO [facility] - Billing Disposition and Condition Condition: STABLE Disposition: Admitted to [facility] - Attestation Statements Document Initiated by Valeria: Yes Documenting Scribe: STEVEN MCKEON Provider For Whom Valeria is Documenting (Include Credential): EDMUND GOODMAN MD Scribe Attestation: STEVEN Guerra, scribed for EDMUND GOODMAN MD on 01/28/19 at 0716. Scribe Documentation Reviewed: Yes Provider Attestation: The documentation as recorded by the STEVEN mancilla accurately reflects the service I personally performed and the decisions made by il, EDMUND GOODMAN MD Status of Scribe Document: Viewed
[2019-01-27] MEDS ORDERED: Aspirin 81 mg CHEW TAB* 81 MG TAB.CHEW PO ONE (21:53)
[2019-01-27] MEDS ORDERED: Ticagrelor* 90 MG TAB PO ONE (21:54)
[2019-01-27] MEDS ORDERED: Nitroglycerin TAB 0.4 MG* 0.4 MG TAB SL PRN (23:04)
--- NOTE | 2019-01-28 00:20 | HP ---
CC: Dr. Arriaga; Dr. Call; Dr. Velasco; Dr. Borrero * HISTORY AND PHYSICAL: DATE OF ADMISSION: 01/27/19 PRIMARY CARE PROVIDER: Dr. Arriaga. IMPROVEMENT LEAD: Dr. Call. ONCOLOGIST: Dr. Velasco. CLINICAL TRIALS SPECIALIST: Dr. Borrero. CHIEF COMPLAINT: Chest pain. HISTORY OF PRESENT ILLNESS: Ms. Chandra is a 64-year-old female who has a history of coronary artery disease, status post STEMI with stent to the LAD in 2014, with subsequent episodes of ventricular tachycardia requiring ICD insertion in 2015; diastolic congestive heart failure; MGUS; and chronic kidney disease, who presents to the emergency room with complaints of chest pain. The patient states that at approximately 3:30 p.m. she was, what she describes as, scrubbing the table when she suddenly felt a sharp pain in the left upper chest. She states that the sharp discomfort lasted for approximately 5 minutes. She notes that the pain subsided in intensity and became an ache that remained present and is still present somehow. The patient states there are no associated symptoms of shortness of breath, nausea, or diaphoresis. She does note the pain, however, radiated up into her left neck and left arm. She also feels some discomfort into her shoulder blade on the left. The patient states that she took nitro x2 and neither one of these doses helped. She states this discomfort was very different from her prior DC. She also tells me that she has been having episodes of chest discomfort that have been short-lived. She does note that this may have increased in frequency over the last couple months. She states that she has had a very busy spring and summer with being diagnosed with MGUS and chronic kidney disease. PAST MEDICAL HISTORY: 1. Coronary artery disease. 2. Diastolic CHF. 3. History of hepatitis A as a child. 4. Fibromyalgia. 5. MGUS. 6. Chronic kidney disease - stage 2. PAST SURGICAL HISTORY: 1. Cholecystectomy. 2. ICD insertion. 3. Left wrist ORIF. 4. Tonsillectomy. 5. Septoplasty. 6. Hysterectomy. 7. Haritha fundoplication. MEDICATIONS: 1. Nitroglycerin 0.4 mg subcutaneous 5 minutes p.r.n. chest pain. 2. Vitamin D 2000 units p.o. daily. 3. Aspirin 81 mg p.o. daily. 4. CoQ10 200 mg p.o. daily. 5. Crestor 40 mg p.o. at bedtime. 6. Metoprolol XL 12.5 mg p.o. at bedtime. 7. Brilinta 90 mg p.o. b.i.d. 8. Digoxin 0.125 mg p.o. at bedtime. ALLERGIES: DEMEROL, PENICILLIN, and LISINOPRIL. FAMILY HISTORY: Dad had an DC in his 50s. He of lung cancer in his 80s. Mom had an DC at the age of 60, of Alzheimer's at 88. The patient had one brother, who of an DC at 50 and one brother, who was recently diagnosed with coronary artery disease. SOCIAL HISTORY: The patient is a nonsmoker. She does not drink alcohol. She is a retired [employer]. She is . She has 2 children. She indicates that her would be her healthcare proxy. REVIEW OF SYSTEMS: A complete 11-system review of systems was obtained. Pertinent positives and negatives are as per HPI, and in addition, the patient does complain of shortness of breath with exertion that has been worse over the last several months. She also notes that she feels extremely fatigued after only 20 minutes of exercise. The rest of the review of systems is negative except for the patient feeling anxious recently. PHYSICAL EXAMINATION GENERAL: The patient is a well-developed, middle-aged female, seen sitting up in the stretcher, in no acute distress. VITAL SIGNS: Blood pressure of 113/73, pulse of 54, respirations 10, temperature 97.3, O2 saturation 97% on room air. HEENT: Pupils are equal. Extraocular muscles are intact. Oropharynx is clear. Oral mucosa is moist. The patient has poor dentition. NECK: There is no submandibular, cervical, or supraclavicular adenopathy. PULMONARY: Lungs are clear to auscultation bilaterally. CARDIAC: Normal S1, S2. Regular rate and rhythm. I do not appreciate any murmurs. There is no lower extremity edema. ABDOMEN: Bowel sounds are present. Abdomen is soft, nontender, nondistended. MUSCULOSKELETAL: The patient moves all four extremities symmetrically. NEURO: Cranial nerves II through XII are grossly intact. Sensation is intact to light touch throughout. Strength is 5/5 and symmetric in both upper and lower extremities bilaterally. PSYCH: The patient is alert. She is oriented x3. Affect appears appropriate. SKIN: Visible areas of the skin are warm, dry, and without rash. DIAGNOSTIC STUDIES/LAB DATA: WBC 7.8, hemoglobin 13.0, hematocrit 39, platelets 275. INR 1.02. Sodium 139, potassium 3.7, chloride 105, CO2 of 31, BUN 15, creatinine 1.08, glucose 103, calcium 9.2. Bilirubin 0.4, AST 20, ALT 21, alk phos 73. Troponin 0 x2. Albumin is 3.6. EKG reveals normal sinus rhythm without any acute ST-T wave abnormalities and unchanged from March 2017. ASSESSMENT AND PLAN: Ms. Chandra is a 64-year-old female who has a history of coronary artery disease, diastolic congestive heart failure, monoclonal gammopathy of undetermined significance, and chronic kidney disease, who presents to the emergency room with complaints of chest pain. 1. Chest pain: The patient will be admitted for an acute coronary syndrome rule out. She has already had 2 negative troponins. I will obtain a third troponin tomorrow morning and obtain an EKG at that time. I do believe that the patient would benefit from stress testing despite the fact that she had stress test in May 2018, which revealed fixed defect with marginal ischemia. The patient gives history of recurrent episodes of chest pain as well as exertional dyspnea and fatigue. This sounds to be different than how she was feeling at the time of her stress test in May. The patient is hesitant to undergo this, however, seems to understand the benefit. 2. Diastolic congestive heart failure. At this point, the patient is relatively euvolemic. She is not on any diuretic therapy. We will monitor for fluid status. 3. Coronary artery disease. The patient will continue on aspirin, metoprolol XL, Crestor, and Brilinta. 4. Monoclonal gammopathy of undetermined significance diagnosis as noted. 5. Chronic kidney disease. Creatinine is slightly higher than her baseline, however, within the range of where she has been over the last 1 year or so. 6. DVT prophylaxis. According to the Adult Thrombosis Prophylaxis Risk Factor Assessment Guide, the patient has a total risk factor score of 3 making her high risk. Heparin 5000 units subcutaneous q.8 hours will be utilized as DVT prophylaxis. 7. Code status is full. TIME SPENT: Sixty-five minutes was spent admitting this patient. [id number]/CPS #: [id number] [facility]
[2019-01-28] MEDS: Heparin VIAL(*) 5000 UNITS/ML VIAL (FIVE THOUSAND) SUBCUT SCH ×2 (05:10→14:57)
[2019-01-28 08:14] VITALS: BP 107/68
[2019-01-28] MEDS ORDERED: Aspirin EC TAB* 81 MG TAB.EC PO SCH (09:00)
[2019-01-28] MEDS ORDERED: Ticagrelor* 90 MG TAB PO SCH (09:00)
[2019-01-28] MEDS ORDERED: Regadenoson* 0.4 MG/5 ML SYRINGE ONE (10:54)
[2019-01-28] MEDS ORDERED: Aminophylline IV* 25 MG/ML 10 ML VIAL ONE (10:54)
--- NOTE | 2019-01-28 11:24 | CONSULT ---
Subjective Date of Service: 01/28/19 Interval History: Admission Date: 01/27/19 Service: Hospitalist: 01/28/2019 PCP: Dr Arriaga Supervisor Electronics Testing: Dr. Call CHIEF COMPLAINT: Chest pain Reason for consult: Chest pain HISTORY OF PRESENT ILLNESS: Ms. Chandra is a 64-year-old woman with a PMHx as below. She was admitted with sharp upper left chest and scapula pain. It felt nothing like her prior UT discomfort. She is currently pain free. She ruled out for ACS. She has had some shortness of breath the last few months but not progressive and not severe and still able to be active. No edema, orthopnea or recent syncope. Patient had exercise stress test today went 9 min 30 seconds on charly protocol with no chest discomfort or ischemic ekg changes and an appropriate rise in BP. I reviewed her nuclear images and my interpretation was of a small sized mid to distal LAD infarct with mau-infarct ischemia similar to 05/2018. PAST MEDICAL HISTORY: 1. Coronary artery disease post STEMI with stent to the LAD in 2014 2. Ischemic cardiomyopathy 3. MGUS4 CKD PAST SURGICAL HISTORY: 1. Cholecystectomy. 2. ICD 3. Left wrist ORIF. 4. Tonsillectomy. 5. Septoplasty. 6. Hysterectomy. 7. Haritha fundoplication. ALLERGIES: DEMEROL, PENICILLIN, and LISINOPRIL. FAMILY HISTORY: Dad had an UT in his 50s. He of lung cancer in his 80s. Mom had an UT at the age of 60, of Alzheimer's at 88. The patient had one brother, who of an UT at 50 and one brother, who was recently diagnosed with coronary artery disease. SOCIAL HISTORY: The patient is a nonsmoker. She does not drink alcohol. She is a retired [employer]. She is . She has 2 children. She indicates that her would be her healthcare proxy. Medications Active Medications: Aspirin (Aspirin Ec Tab*) 81 mg PO QAM [facility] Last Admin: 01/28/19 09:36 Dose: 81 mg Atorvastatin Calcium (Lipitor*) 80 mg PO QPM [facility] Digoxin (Lanoxin Tab*) 0.125 mg PO QPM [facility] Heparin Sodium (Porcine) (Heparin Vial(*)) 5,000 units SUBCUT Q8HR [facility] Last Admin: 01/28/19 05:10 Dose: 5,000 units Metoprolol Succinate (Toprol Xl Tab*) 12.5 mg PO QPM [facility] Nitroglycerin (Nitroglycerin Tab 0.4 Mg*) 0.4 mg SL Q5M PRN PRN Reason: PAIN - CHEST Ticagrelor (Brilinta*) 90 mg PO BID [facility] Last Admin: 01/28/19 09:36 Dose: 90 mg Home Medications: Aspirin EC TAB* [Ecotrin EC Low Dose 81 MG*] 81 mg PO QAM 09/23/14 [History Confirmed 01/27/19] Ticagrelor* [Brilinta 90 MG*] 90 mg PO BID 09/23/14 [History Confirmed 01/27/19] Metoprolol Succinate XL TAB* [Toprol XL TAB*] 12.5 mg PO QPM 06/26/15 [History Confirmed 01/27/19] Nitroglycerin TAB 0.4 MG* 0.4 mg SL Q5M PRN 06/26/15 [History Confirmed 01/27/19 ] Digoxin TAB* [Lanoxin TAB*] 0.125 mg PO QPM 04/07/17 [History Confirmed 01/27/19 ] Rosuvastatin (NF) [Crestor (NF)] 40 mg PO QPM 04/07/17 [History Confirmed ] Ubidecarenone [Co Q-10] 200 mg PO QAM 04/07/17 [History Confirmed 01/27/19] Cholecalciferol (Vitamin D3) [Vitamin D3] 2,000 unit PO QAM 06/15/18 [History Confirmed 01/27/19] Review of Systems - Measurements Intake and Output: Intake and Output Last 24 Hours 01/26/19 01/27/19 01/28/19 01/29/19 06:59 06:59 06:59 06:59 Intake Total 0 Balance 0 Weight 175 lb 8 oz Intake: Oral 0 - Review of Systems Constitutional Symptoms: Negative: Weight Gain, Weight Loss, Weakness, Fatigue, Fever Dermatology: Negative: Rash, Skin Lesions HEENT: Negative: Change in Hearing, Vertigo Eyes: Negative: Change in Vision, Double Vision Thyroid: Negative: Cold Intolerance, Heat Intolerance, Weight Loss, Weight Gain Pulmonary: Positive: Shortness of Breath Negative: Cough, Sputum, Hemoptysis, Respiratory Distress, COPD Cardiology: Positive: Chest Pain Negative: Palpitations, Swelling of Ankles, Peripheral Vascular Dis, Edema, Faintness, Syncope, Claudication, Paroxysmal Nocturnal Dyspnea, Orthopnea Gastroenterology: Negative: Blood in Stools, Change in Bowel Habits, Haematemesis, Melena Genital - Urinary: Negative: Dysuria, Hematuria Musculoskeletal: Negative: Joint Pain, Joint Stiffness Endocrinology: Negative: Polydipsia, Polyuria Hematologic/Lymphatic: Positive: Use of Antiplatelet Drugs Negative: Use of Anticoagulant Neurology: Negative: Change in Speech, Change in Sphincter Function, Hx of Stroke\TIA, Hx Seizures Psychiatry: Negative: Unusual Anxiety, Suicidal Ideation Allergic/Immunologic: Negative: Hx HIV, Immunocompromise Review of Systems Statement: All other review of systems negative, unless stated above. Objective Vital Signs: Temp Pulse Resp BP Pulse Ox 97.6 F 58 16 107/68 99 01/28/19 07:15 01/28/19 07:15 01/28/19 07:15 01/28/19 07:15 01/28/19 07:15 Oxygen Devices in Use Now: None Appearance: nad, pleasant Ears/Nose/Mouth/Throat: Clear Oropharnyx, Mucous Membranes Moist Neck: NL Appearance and Movements; NL JVP, Trachea Midline Respiratory: Symmetrical Chest Expansion and Respiratory Effort, Clear to Auscultation Cardiovascular: NL Sounds; No Murmurs; No JVD, RRR, No Edema, - - icd site intact Abdominal: NL Sounds; No Tenderness; No Distention Extremities: No Edema, No Clubbing, Cyanosis Skin: No Rash or Ulcers Neurological: Alert and Oriented x 3 Laboratory Results: 01/27/19 18:31 01/27/19 18:31 INR (Anticoag Therapy) 1.02 (0.82-1.09) 01/27/19 18:31 Total Bilirubin 0.40 mg/dL (0.2-1.0) 01/27/19 18:31 AST 20 U/L (13-39) 01/27/19 18:31 ALT 21 U/L (7-52) 01/27/19 18:31 Alkaline Phosphatase 73 U/L (34-104) 01/27/19 18:31 Total Protein 6.6 g/dL (6.4-8.9) 01/27/19 18:31 Albumin 3.6 g/dL (3.2-5.2) 01/27/19 18:31 Globulin 3.0 g/dL (2-4) 01/27/19 18:31 Albumin/Globulin Ratio 1.2 (1-3) 01/27/19 18:31 01/27/19 01/27/19 01/28/19 18:31 21:05 06:10 Troponin I 0.00 0.00 0.00 Diagnostic Imaging: Exam Date: 01/27/19 INDICATION: Chest pain and shortness of breath. IMPRESSION: NO EVIDENCE FOR ACTIVE CARDIOPULMONARY DISEASE. EKG Data: ekg 01/27/2019 SB 52 bpm, essentially unremarkable ekg Assessment/Plan Patients presentation is not consistent with angina. She has relatively good exercise capacity. She should continue her prior medications and follow up with her hedis abstractor and PCP for ongoing secondary prevention evaluation and treatment as previously planned.
--- NOTE | 2019-01-28 15:00 | DS ---
CC: Dr. Arriaga; Dr. Call * DISCHARGE SUMMARY: DATE OF ADMISSION: 01/27/19 DATE OF DISCHARGE: 01/28/19 PRINCIPAL DISCHARGE DIAGNOSIS: Chest pain. SECONDARY DISCHARGE DIAGNOSES: 1. Coronary artery disease. 2. Ischemic cardiomyopathy with an ICD in place for secondary prevention secondary to history of ventricular tachycardia. 3. Monoclonal gammopathy of undetermined significance. 4. Chronic kidney disease. 5. Fibromyalgia. MEDICATIONS AT DISCHARGE: 1. Aspirin 81 mg daily. 2. Brilinta 90 mg b.i.d. 3. Nitroglycerin 0.4 mg sublingual q.5 minutes p.r.n. chest pain. 4. Toprol-XL 12.5 mg daily. 5. Digoxin 0.125 mg daily. 6. Rosuvastatin 40 mg daily. 7. CoQ10 200 mg daily. 8. Cholecalciferol 2000 units daily. PERTINENT TESTING ON THIS ADMISSION: A nuclear medicine scan on 01/28/19 showed a moderate-sized fixed defect of the distal anterior wall apex and distal inferior wall consistent with previous infarct. No reversibility to suggest ischemia. CONSULTS DURING THIS ADMISSION: Dr. Asaf Diallo from Cardiology. HOSPITAL COURSE BY PROBLEM: 1. Chest pain. Ms. Chandra experienced chest pain yesterday when she was cleaning a table and described it as a sharp pain in her left chest that did not feel similar to prior ischemic events. Her troponins were negative x3 and her EKG showed no ischemic changes from prior EKGs. She had had a recent stress test in May and underwent another nuclear medicine scan today. We discussed the findings with Dr. Diallo and consulted him and he saw Ms. Chandra and felt that her pain was not cardiac in nature and in combination with her unchanged stress test that she could follow up with her primary care physician and her paid search marketing analyst, Dr. Call, on an outpatient basis. Ms. Chandra is pleased with this plan, has had no further chest pain, and feels comfortable going home. She is continued on her home medications including aspirin, Brilinta, and statin. 2. Ischemic cardiomyopathy with history of VT and an ICD in place. She had no telemetry events during this admission. She was continued on her usual doses of metoprolol and digoxin. 3. MGUS. She is currently followed by Oncology and Nephrology for MGUS. 4. Chronic kidney disease. She is followed by Nephrology and her creatinine during this admission was at baseline at 1.08. DISPOSITION: Ms. Chandra is being discharged to home on 01/28/19. She understands to follow up with her primary care provider and with Dr. Call and knows to return to the emergency department should her chest pain return. CONDITION AT THE TIME OF DISCHARGE: Stable. [id number] #: [id number]
[2019-01-28] MEDS ORDERED: Metoprolol Succinate XL TAB* 25 MG PO SCH (18:00)
[2019-01-28] MEDS ORDERED: Atorvastatin* 80 MG TAB PO SCH (18:00)
[2019-01-28] MEDS ORDERED: Digoxin TAB* 0.125 MG PO SCH (18:00)
== END 2019-01-28 15:03 | disposition home or self-care (01) ==
LOC: ED 18:11 → MEDTELE 23:01
PROVIDERS: ADMIT Hospitalist; ATTEND Internal Medicine
DX: R07.9 Chest pain, unspecified (principal); I25.10 Atherosclerotic heart disease of native coronary artery without angina pectoris; I25.5 Ischemic cardiomyopathy; Z95.810 Presence of automatic (implantable) cardiac defibrillator; I12.9 Hypertensive chronic kidney disease with stage 1 through stage 4 chronic kidney disease, or unspecified chronic kidney disease; N18.9 Chronic kidney disease, unspecified; D47.2 Monoclonal gammopathy; M79.7 Fibromyalgia; Z79.82 Long term (current) use of aspirin; Z79.899 Other long term (current) drug therapy; Z88.0 Allergy status to penicillin; K21.9 Gastro-esophageal reflux disease without esophagitis
CPT/HCPCS: 36415; 71046; 78452; 80053; 84484; 85025; 85379; 85610; 93005; 93017; 99284; A9270-GY; A9502; G0378; J0280; J1644; J2785

== ENCOUNTER 2020-03-13 10:24 | Inpatient (IN) ==
[2020-03-13] MEDS ORDERED: NS 0.9% 1000 ml BAG 1,000 ML IV ONE (10:49)
[2020-03-13 11:17] LABS: ABS Lymphocytes 0.8 10^3/ul (1.0-4.8); ABS Monocytes 0.3 10^3/ul (0-0.8); ABS Neutrophils 4.7 10^3/ul (1.5-7.7); Eosinophil % 0.1 %; Hematocrit 45 % (35-47); Hemoglobin 15.5 g/dL (12.0-16.0); Lymphocyte % 13.8 %; Mean Corpuscular HGB Conc 35 g/dL (31-36); Mean Corpuscular Hemoglobin 30 pg (27-31); Mean Corpuscular Volume 88 fL (80-97); Mean Platelet Volume 7.9 fL (7.4-10.4); Platelet Count 196 10^3/uL (150-450); Red Blood Count 5.12 10^6 /uL (3.70-4.87); Red Cell Distribution Width 15 % (10-15); White Blood Count 5.9 10^3/uL (3.5-10.8)
[2020-03-13 11:26] LABS: Activated Partial Thrombo Time 25.8 seconds (26.0-38.0); INR 1.25 (0.82-1.09)
[2020-03-13 11:37] LABS: Troponin I 0.01 ng/mL (<0.03)
[2020-03-13 11:42] LABS: Albumin 3.7 g/dL (3.2-5.2); Albumin/Globulin Ratio 1.1 (1-3); BUN/Creatinine Ratio 15.5 (8-20); C Reactive Protein 11.91 mg/L (<8.01); Calcium 9.1 mg/dL (8.6-10.3); EGFR African American 56.6 (>60); EGFR Non-African American 46.7 (>60); Globulin 3.4 g/dL (2-4); Potassium 3.1 mmol/L (3.5-5.0); Total Bilirubin 1.1 mg/dL (0.2-1.0); Total Protein 7.1 g/dL (6.4-8.9)
[2020-03-13] MEDS ORDERED: Potassium Chlor 20 meq TAB.ER PO ONE (12:05)
[2020-03-13 12:07] LABS: Ferritin 352.8 ng/mL (11-307)
[2020-03-13] MEDS ORDERED: NS 0.9% 1000 ml BAG 1,000 ML IV SCH (14:45)
[2020-03-13] MEDS ORDERED: Iodixanol (CONTRAST) 320 MG/ML 100 ML SDV IV ONE (15:15)
[2020-03-13 16:59] LABS: Magnesium 2.1 mg/dL (1.9-2.7)
[2020-03-13] MEDS: Enoxaparin 40 MG/0.4 ML SYR SUBCUT SCH (17:05)
[2020-03-14] MEDS: Enoxaparin 40 MG/0.4 ML SYR SUBCUT SCH ×2 (05:05→15:18)
[2020-03-14] MEDS: Aspirin EC 81 mg TAB.EC (enteric coated) PO SCH (08:12)
[2020-03-14] MEDS: Cholecalciferol (VIT D3) 1,000 unit TAB PO SCH (08:12)
[2020-03-14] MEDS: Dexamethasone IV 4 MG/ML VIAL 1 ml VIAL IV SLOW PU SCH (08:14)
[2020-03-14 08:34] LABS: ABS Lymphocytes 1.2 10^3/ul (1.0-4.8); ABS Monocytes 0.4 10^3/ul (0-0.8); Eosinophil % 0.1 %; Hematocrit 39 % (35-47); Hemoglobin 13.4 g/dL (12.0-16.0); Lymphocyte % 21.3 %; Mean Corpuscular HGB Conc 34 g/dL (31-36); Mean Corpuscular Hemoglobin 30 pg (27-31); Mean Corpuscular Volume 88 fL (80-97); Platelet Count 188 10^3/uL (150-450); Red Blood Count 4.42 10^6 /uL (3.70-4.87); Red Cell Distribution Width 15 % (10-15); White Blood Count 5.5 10^3/uL (3.5-10.8)
[2020-03-14 09:01] LABS: BUN/Creatinine Ratio 14.7 (8-20); Calcium 8.4 mg/dL (8.6-10.3); EGFR African American 71.2 (>60); EGFR Non-African American 58.9 (>60); Potassium 3.2 mmol/L (3.5-5.0)
[2020-03-14] MEDS ORDERED: Potassium Chlor 20 meq TAB.ER PO ONE (10:53)
[2020-03-14] MEDS: Ondansetron 4 mg VIAL 2 MG/ML 2 ml VIAL IV PRN (12:34)
[2020-03-15] MEDS: Enoxaparin 40 MG/0.4 ML SYR SUBCUT SCH ×2 (02:53→14:43)
[2020-03-15 07:27] LABS: ABS Lymphocytes 1.3 10^3/ul (1.0-4.8); ABS Monocytes 0.4 10^3/ul (0-0.8); ABS Neutrophils 7.8 10^3/ul (1.5-7.7); Hematocrit 40 % (35-47); Hemoglobin 13.6 g/dL (12.0-16.0); Lymphocyte % 14.1 %; Mean Corpuscular HGB Conc 34 g/dL (31-36); Mean Corpuscular Hemoglobin 30 pg (27-31); Mean Corpuscular Volume 88 fL (80-97); Mean Platelet Volume 8.3 fL (7.4-10.4); Platelet Count 210 10^3/uL (150-450); Red Blood Count 4.47 10^6 /uL (3.70-4.87); Red Cell Distribution Width 15 % (10-15); White Blood Count 9.5 10^3/uL (3.5-10.8)
[2020-03-15 07:34] LABS: BUN/Creatinine Ratio 15.5 (8-20); Calcium 8.7 mg/dL (8.6-10.3); EGFR African American 82.1 (>60); EGFR Non-African American 67.8 (>60); Magnesium 1.9 mg/dL (1.9-2.7); Potassium 3.4 mmol/L (3.5-5.0)
[2020-03-15] MEDS ORDERED: Potassium Chlor 20 meq TAB.ER PO ONE (08:53)
[2020-03-15] MEDS: Dexamethasone IV 4 MG/ML VIAL 1 ml VIAL IV SLOW PU SCH (09:32)
[2020-03-15] MEDS: Cholecalciferol (VIT D3) 1,000 unit TAB PO SCH (09:35)
[2020-03-15] MEDS: Aspirin EC 81 mg TAB.EC (enteric coated) PO SCH (09:35)
[2020-03-15] MEDS: KCL 20 MEQ/100 ML IVPREMIX 20 MEQ/100 ML BAG IV SCH ×2 (13:13→18:05)
[2020-03-15] MEDS: Ondansetron 4 mg VIAL 2 MG/ML 2 ml VIAL IV PRN (13:14)
[2020-03-15] MEDS ORDERED: NS 0.9% 500 ml BAG 500 ML IV SCH (14:00)
[2020-03-15 17:10] LABS: BUN/Creatinine Ratio 16.7 (8-20); Calcium 8.6 mg/dL (8.6-10.3); EGFR African American 75.8 (>60); EGFR Non-African American 62.6 (>60); Potassium 3.8 mmol/L (3.5-5.0)
[2020-03-16] MEDS: Enoxaparin 40 MG/0.4 ML SYR SUBCUT SCH (04:08)
[2020-03-16 07:51] LABS: Albumin 3.1 g/dL (3.2-5.2); Calcium 8.6 mg/dL (8.6-10.3); Potassium 3.5 mmol/L (3.5-5.0); Total Bilirubin 0.7 mg/dL (0.2-1.0)
[2020-03-16 07:57] LABS: BUN/Creatinine Ratio 14.9 (8-20); EGFR African American 78.8 (>60); EGFR Non-African American 65.1 (>60); Globulin 3.1 g/dL (2-4); Total Protein 6.2 g/dL (6.4-8.9)
[2020-03-16] MEDS: Aspirin EC 81 mg TAB.EC (enteric coated) PO SCH (08:23)
[2020-03-16] MEDS: Cholecalciferol (VIT D3) 1,000 unit TAB PO SCH (08:23)
[2020-03-16] MEDS: Dexamethasone IV 4 MG/ML VIAL 1 ml VIAL IV SLOW PU SCH (08:23)
[2020-03-16] MEDS: Ondansetron 4 mg VIAL 2 MG/ML 2 ml VIAL IV PRN (08:24)
[2020-03-16 08:27] LABS: ABS Monocytes 0.5 10^3/ul (0-0.8); ABS Neutrophils 7.9 10^3/ul (1.5-7.7); Hematocrit 37 % (35-47); Hemoglobin 12.8 g/dL (12.0-16.0); Lymphocyte % 10.2 %; Mean Corpuscular HGB Conc 35 g/dL (31-36); Mean Corpuscular Hemoglobin 30 pg (27-31); Mean Corpuscular Volume 87 fL (80-97); Mean Platelet Volume 8.1 fL (7.4-10.4); Platelet Count 249 10^3/uL (150-450); Red Blood Count 4.26 10^6 /uL (3.70-4.87); Red Cell Distribution Width 15 % (10-15); White Blood Count 9.4 10^3/uL (3.5-10.8)
[2020-03-16 11:12] VITALS: BP 107/67
== END 2020-03-16 13:30 | disposition home or self-care (01) | DRG 178 ==
LOC: MED 10:24 → ED 10:24 → MED 16:20
PROVIDERS: ADMIT Student in an Organized Health Care Education/Training Program; ATTEND Internal Medicine

== ENCOUNTER 2020-08-08 11:58 | Observation (INO) ==
[~2020-08-08 11:58] MED LIST changes: +Buffered Lidocaine 1% SYRIN 1 ml INTRADERM ONE; -Buffered Lidocaine 1% SYRIN* 1 ML/SYRINGE INTRADERM ONE; -Dexamethasone IV* 4 MG/ML 1 ML (4 MG) IV SLOW PU ONE; -Famotidine IV* 10 MG/ML 2 ML (20 mg) IV ONE; -Lactated Ringers 1000 ML Bag* 1,000 ML IV SCH; +Lactated Ringers 1000 ml BAG 1,000 ML IV SCH; +Lidocaine 2% PF 5 ML VIAL ONE; +Midazolam 2 mg/2 ml VIAL 1 mg/ml 2 ml VIAL (2 mg) ONE; +Phenylephrine IV 10 MG/ML 1 ml VIAL ONE; +Propofol 10 MG/ML 20 ML BTL ONE
[2020-08-08] MEDS ORDERED: Naloxone 0.4 mg VIAL 0.4 mg/ml 1 ml VIAL IV PRN (12:09)
[2020-08-08] MEDS ORDERED: Metoclopramide 5 MG/ML VIAL (10 mg) IV PRN (12:09)
[2020-08-08] MEDS ORDERED: HYDROcodone/ACETAMIN 5/325 mg TAB PO PRN (12:09)
[2020-08-08] MEDS ORDERED: Ondansetron 4 mg VIAL 2 MG/ML 2 ml VIAL IV PRN ×2 (12:09→17:00)
[2020-08-08] MEDS ORDERED: Clindamycin 900 MG/D5W BAG 900 MG/50 ML BAG IVPB ONE (12:25)
[2020-08-08] MEDS ORDERED: ROPIVACAINE 5 MG/ML 30 ML BTL (0.5%) ONE (13:33)
[2020-08-08] MEDS ORDERED: HYDROmorphone 1 MG/1 ML SYRINGE ONE (13:35)
[2020-08-08] MEDS ORDERED: Rocuronium 50 mg VIAL 10 mg/ml 5 ml VIAL (50 mg) ONE ×2 (13:35→15:28)
[2020-08-08] MEDS ORDERED: Dexamethasone IV 4 MG/ML VIAL 1 ml VIAL ONE (15:28)
[2020-08-08] MEDS ORDERED: Ondansetron 4 mg VIAL 2 MG/ML 2 ml VIAL ONE (15:28)
[2020-08-08] MEDS ORDERED: EPHEDrine (Pressors) 50 MG/ML VIAL ONE (15:33)
[2020-08-08] MEDS ORDERED: Glycopyrrolate IV 0.2 MG/ML 1 ML VIAL ONE (15:59)
[2020-08-08] MEDS ORDERED: Magnesium Hydroxide LIQ 30 ML UDC PO PRN (17:00)
[2020-08-08] MEDS ORDERED: diPHENhydraMINE 25 mg TAB PO PRN (17:00)
[2020-08-08] MEDS ORDERED: diPHENhydraMINE IV 50 MG/ML 1 ml VIAL (BENADRYL) IV PRN (17:00)
[2020-08-08] MEDS ORDERED: Lactulose 30 ml UDC PO PRN (17:00)
[2020-08-08] MEDS ORDERED: Ondansetron ODT 4 mg TAB 4 MG TAB PO PRN (17:00)
[2020-08-08] MEDS ORDERED: Morphine 2 MG/ML SYRINGE IV PRN (17:00)
[2020-08-08] MEDS ORDERED: CARBOXYMETHYLCELLULOSE BOTH EYES PRN (17:13)
[2020-08-08] MEDS ORDERED: fentaNYL 100 mcg/2 ml 50 MCG/ML VIAL ONE (17:23)
[2020-08-08] MEDS: fentaNYL 100 mcg/2 ml 50 MCG/ML VIAL IV PRN ×4 (17:24→17:56)
[2020-08-08] MEDS ORDERED: HYDROcodone/ACETAMIN 5/325 mg TAB ONE (17:47)
[2020-08-08] MEDS ORDERED: Morphine 2 MG/ML SYRINGE ONE (18:58)
[2020-08-08] MEDS: NS 0.9% 1000 ml BAG 1,000 ML IV SCH (19:03)
[2020-08-08] MEDS: Magnesium Hydroxide LIQ 30 ML UDC PO SCH (21:00)
[2020-08-08] MEDS: Clindamycin 600 MG/D5W BAG 600 MG/50 ML BAG IV SCH (23:22)
[2020-08-09] MEDS: NS 0.9% 1000 ml BAG 1,000 ML IV SCH (05:27)
[2020-08-09 07:03] LABS: Hematocrit 33 % (35-47); Hemoglobin 11.2 g/dL (12.0-16.0); Mean Platelet Volume 7.4 fL (7.4-10.4); Platelet Count 245 10^3/uL (150-450)
[2020-08-09 07:13] LABS: Calcium 8.5 mg/dL (8.6-10.3); Potassium 3.9 mmol/L (3.5-5.0)
[2020-08-09 07:19] LABS: EGFR African American 92.1 (>60); EGFR Non-African American 76.1 (>60)
[2020-08-09] MEDS: Clindamycin 600 MG/D5W BAG 600 MG/50 ML BAG IV SCH ×2 (07:51→16:07)
[2020-08-09] MEDS: Cholecalciferol (VIT D3) 1,000 unit TAB PO SCH (08:32)
[2020-08-09] MEDS: Vitamin THERAPEUTIC TAB PO SCH (08:33)
[2020-08-09] MEDS: Magnesium Hydroxide LIQ 30 ML UDC PO SCH ×2 (08:33→20:26)
[2020-08-09] MEDS: Aspirin EC 81 mg TAB.EC (enteric coated) PO SCH (08:33)
[2020-08-10 06:55] LABS: Hematocrit 28 % (35-47); Hemoglobin 9.7 g/dL (12.0-16.0); Mean Platelet Volume 7.3 fL (7.4-10.4); Platelet Count 206 10^3/uL (150-450)
[2020-08-10] MEDS: Magnesium Hydroxide LIQ 30 ML UDC PO SCH (08:24)
[2020-08-10] MEDS: Aspirin EC 81 mg TAB.EC (enteric coated) PO SCH (08:24)
[2020-08-10] MEDS: Vitamin THERAPEUTIC TAB PO SCH (08:24)
[2020-08-10] MEDS: Cholecalciferol (VIT D3) 1,000 unit TAB PO SCH (08:24)
[2020-08-10 11:32] VITALS: BP 119/57
== END 2020-08-10 12:35 | disposition home or self-care (01) ==
LOC: INTOOBSV 11:58 → AA 11:58 → SSU 17:00
PROVIDERS: ADMIT Orthopaedic Surgery Adult Reconstructive Orthopaedic Surgery; ATTEND Orthopaedic Surgery Adult Reconstructive Orthopaedic Surgery

== ENCOUNTER 2020-08-24 13:55 | Observation (INO) ==
[2020-08-24 15:08] LABS: ABS Basophils 0.1 10^3/ul (0-0.2); ABS Eosinophils 0.2 10^3/ul (0-0.6); ABS Lymphocytes 1.1 10^3/ul (1.0-4.8); ABS Monocytes 0.5 10^3/ul (0-0.8); Eosinophil % 2.5 %; Hematocrit 37 % (35-47); Hemoglobin 12.5 g/dL (12.0-16.0); Lymphocyte % 10.8 %; Mean Corpuscular HGB Conc 34 g/dL (31-36); Mean Corpuscular Hemoglobin 31 pg (27-31); Mean Corpuscular Volume 90 fL (80-97); Mean Platelet Volume 6.8 fL (7.4-10.4); Platelet Count 606 10^3/uL (150-450); Red Cell Distribution Width 15 % (10-15); White Blood Count 9.9 10^3/uL (3.5-10.8)
[2020-08-24 15:14] LABS: INR 1.29 (0.82-1.09)
[2020-08-24 15:27] LABS: Troponin I 0.01 ng/mL (<0.03)
[2020-08-24 15:31] LABS: Albumin 3.7 g/dL (3.2-5.2); Albumin/Globulin Ratio 1.1 (1-3); Calcium 9.6 mg/dL (8.6-10.3); EGFR African American 71.2 (>60); EGFR Non-African American 58.9 (>60); Globulin 3.3 g/dL (2-4); Total Bilirubin 0.6 mg/dL (0.2-1.0)
[2020-08-24] MEDS ORDERED: Iodixanol (CONTRAST) 320 MG/ML 100 ML SDV IV ONE (16:09)
[2020-08-24 18:27] LABS: Troponin I 0.07 ng/mL (<0.03)
[2020-08-24] MEDS ORDERED: Heparin DRIP 25,000 UNITS BAG 25,000 UNITS/500 ML BAG IV SCH (18:30)
[2020-08-24 19:31] LABS: ABS Basophils 0.1 10^3/ul (0-0.2); ABS Eosinophils 0.3 10^3/ul (0-0.6); ABS Lymphocytes 1.7 10^3/ul (1.0-4.8); ABS Monocytes 0.5 10^3/ul (0-0.8); ABS Neutrophils 5.9 10^3/ul (1.5-7.7); Hematocrit 32 % (35-47); Hemoglobin 11.6 g/dL (12.0-16.0); Lymphocyte % 20.3 %; Mean Corpuscular HGB Conc 36 g/dL (31-36); Mean Corpuscular Hemoglobin 33 pg (27-31); Mean Corpuscular Volume 89 fL (80-97); Mean Platelet Volume 6.8 fL (7.4-10.4); Platelet Count 500 10^3/uL (150-450); Red Blood Count 3.59 10^6 /uL (3.70-4.87); Red Cell Distribution Width 15 % (10-15); White Blood Count 8.4 10^3/uL (3.5-10.8)
[2020-08-24 19:49] LABS: EGFR African American 83.2 (>60); EGFR Non-African American 68.8 (>60)
[2020-08-24] MEDS: Heparin 5000 UNITS/ML 1 mL VIAL IV SCH (21:18)
[2020-08-24 22:06] LABS: Troponin I 0.21 ng/mL (<0.03)
[2020-08-25 00:47] LABS: Troponin I 0.23 ng/mL (<0.03)
[2020-08-25 03:17] LABS: ABS Basophils 0.1 10^3/ul (0-0.2); ABS Eosinophils 0.5 10^3/ul (0-0.6); ABS Lymphocytes 1.9 10^3/ul (1.0-4.8); ABS Monocytes 0.6 10^3/ul (0-0.8); ABS Neutrophils 4.3 10^3/ul (1.5-7.7); Eosinophil % 7.4 %; Hematocrit 33 % (35-47); Hemoglobin 11.1 g/dL (12.0-16.0); Lymphocyte % 25.4 %; Mean Corpuscular HGB Conc 34 g/dL (31-36); Mean Corpuscular Hemoglobin 30 pg (27-31); Mean Corpuscular Volume 90 fL (80-97); Mean Platelet Volume 6.9 fL (7.4-10.4); Platelet Count 504 10^3/uL (150-450); Red Blood Count 3.67 10^6 /uL (3.70-4.87); Red Cell Distribution Width 16 % (10-15); White Blood Count 7.4 10^3/uL (3.5-10.8)
[2020-08-25 03:41] LABS: Troponin I 0.21 ng/mL (<0.03)
[2020-08-25] MEDS: Heparin 5000 UNITS/ML 1 mL VIAL IV SCH (03:42)
[2020-08-25] MEDS ORDERED: Midazolam 5 mg/5 ml VIAL 1 mg/ml 5 ml VIAL (5 mg) ONE (07:40)
[2020-08-25] MEDS ORDERED: VERAPAMIL 2.5 MG/ML 2 ML VIAL ** 5 mg/2 ml ONE (07:40)
[2020-08-25] MEDS ORDERED: nitroGLYCERIN DRIP 0 MCG/0 ML BTL ONE (07:41)
[2020-08-25] MEDS ORDERED: Lidocaine 1% VIAL 10 MG/ML VIAL ONE (07:41)
[2020-08-25] MEDS ORDERED: Heparin 1,000 UNIT/ML 10 ml (10,000 UNITS) CATHLAB/DIALYSIS ONE (07:41)
[2020-08-25] MEDS ORDERED: Iohexol 350 (CONTRAST) 200 ML MDV IV ONE (07:41)
[2020-08-25] MEDS ORDERED: Heparin 2 UNITS/ML 1000 mls 2,000 ML IV ONE (07:41)
[2020-08-25] MEDS ORDERED: NS 0.9% 1000 ml BAG 1,000 ML IV SCH ×3 (07:45→09:15)
[2020-08-25] MEDS ORDERED: diPHENhydraMINE IV 50 MG/ML 1 ml VIAL (BENADRYL) ONE (07:46)
[2020-08-25] MEDS ORDERED: Aspirin EC 81 mg TAB.EC (enteric coated) PO SCH (09:00)
[2020-08-25] MEDS ORDERED: Cholecalciferol (VIT D3) 1,000 unit TAB PO SCH (09:00)
[2020-08-25] MEDS ORDERED: Perflutren Lipid Microsphere 3 ML VIAL ONE (10:13)
[2020-08-25 15:38] VITALS: BP 110/66
== END 2020-08-25 17:11 | disposition home or self-care (01) ==
LOC: ED 13:55 → MEDTELE 13:55
PROVIDERS: ADMIT Student in an Organized Health Care Education/Training Program; ATTEND Internal Medicine